=== PATIENT | female | born 1990 | race African-American/Black ===

== ENCOUNTER → 2018-03-20 | Outpatient (CLI) | payer MEDICAID ==
[~2018-03-20] MED LIST: IBUP800 PO; PREN0.01 PO; SENN1TAB11 PO
== END ==
LOC: HPND 10:35
PROVIDERS: ATTEND Obstetrics & Gynecology
DX: O35.1XX0 Maternal care for (suspected) chromosomal abnormality in fetus, not applicable or unspecified (principal)
CPT/HCPCS: 76816; 76817

== ENCOUNTER 2018-04-25 12:10 | Inpatient (IN) ==
[2018-04-25] MEDS ORDERED: Mag Sulf/Water 4 gm/100 ml 100 ML IV.SIG ONE ×2 (12:37→13:01)
[2018-04-25] MEDS ORDERED: Azithromycin 250 MG Tablet PO ONE (12:37)
[2018-04-25] MEDS ORDERED: Mag Sulf/Water 40 gm/1000 ml 40 GM/1,000 ML BAG IV.CONT SCH (13:00)
[2018-04-25] MEDS ORDERED: ENTER PATIENT'S HEIGHT AND WEIGHT INTO MEDITECH OTHER SCH (13:00)
[2018-04-25] MEDS ORDERED: Mag Sulf/Water 40 gm/1000 ml 40 GM/1,000 ML BAG IV.CONT ONE (13:01)
--- NOTE | 2018-04-25 13:11 | ED ---
History of Present Illness Primary Care Physician: UNKNOWN Chief Complaint: SROM History of Present Illness: Ms Sahu is a 27 YO at 29/6 weeks with late PNC started at 15 weeks gestation who presents after SROM at approximately 11 AM this morning. Pt has no VB or ctx but does have good movement. Pt also known to have short cervix at last OB US with cervix at 26-30mm in length. Pt reported to have recent colpo in December of this year. Pt taking PNV and Iron sulfate 325mg daily and NKA. Denies elevated BP or abnormal blood glucose. Previous delivered at term via . Denies CP, SOB, N/V/D, dysuria, leg pain. - Inpatient Certification I certify that the inpatient services were ordered in accordance with Medicare regulations governing the order. This includes certification that hospital inpatient services are reasonable and necessary and in the case of services not specified as inpatient-only under 42 CFR 419.22(n), that they are appropriately provided as inpatient services in accordance to with the 2-midnight benchmark under 43 CFR 412.3(e) Estimated Total Length of Stay (Days): 2 Plans for Post Hospital Care: Home Review of Systems Constitutional: Denies chills, Denies fever(s) Eyes: Denies change in vision Cardiovascular: Denies chest pain, Denies shortness of breath with activity Respiratory: Denies cough, Denies shortness of breath Gastrointestinal: Denies abdominal pain, Denies nausea, Denies vomiting Genitourinary: Denies abnormal vaginal bleeding, Denies vaginal discharge Musculoskeletal: Denies back pain Skin/Breast: Denies lesions, Denies rash Neurologic: Denies headache(s) PMFSH - Medical / Surgical Hx Neg / Unobtainable Surgical History: No Previous Surgery - Family History Family History: Family History (Last Updated 04/25/18 @ 13:00 by J Luis Askew III, MD, R2) Father Hypertension - Tobacco History Second Hand Smoke Exposure: Yes Tobacco Use In Past 30 Days: Yes Smoking Status: Current every day smoker (1 cigarette per day) Tobacco Type: Cigarettes Cigarettes Per Day: 1 - Alcohol History How Often Do You Have a Drink Containing Alcohol: Never - Substance Use History Substance History: No History of Abuse - Travel History History of Recent Travel: No Recent Travel in the [place] Within the Last 8 Weeks: No Recent Travel Out of the Country Within the Last 8 Weeks: No Medications and Allergies Allergies Allergy/AdvReac Type Severity Reaction Status Date / Time No Known Drug Allergies Allergy None Verified 04/25/18 20:24 Home Medications Medication Instructions Recorded Confirmed Type prenat.vits,sandy,[id number] 1 tab PO DAILY 04/25/18 04/25/18 History [ Vitamin] Active Medications: Active Medications Acetaminophen (Tylenol) 650 mg PO Q4H PRN PRN Reason: PAIN SCALE 1 TO 10 Azithromycin (Zithromax) 1,000 mg PO ONCE ONE Stop: 04/25/18 12:38 Betamethasone Acet/Betameth SodPhos (Celestone Soluspan Inj) 12 mg IM Q24H [facility] Stop: 04/26/18 13:00 Calcium Gluconate (Calcium Gluconate Inj) 1 gm IV.PUSH ONCE PRN PRN Reason: Magnesium toxicity Ampicillin Sodium 2,000 mg/ (Sodium Chloride) 100 mls @ 400 mls/hr IV.SIG Q6H [facility] Stop: 04/27/18 12:59 Lactated Ringer's (Lr 1000 Ml Inj) 1,000 mls @ 75 mls/hr IV.CONT .[id number] [facility] Lactated Ringer's (Lr 1000 Ml Inj) 500 mls @ 1,500 mls/hr IV.SIG .Q20M ONE Stop: 04/25/18 12:56 Magnesium Sulfate (Magnesium Sulfate/Water 4 Gm/100 Ml Premix) 100 mls @ 300 mls/hr IV.SIG ONCE ONE Stop: 04/25/18 12:56 Magnesium Sulfate (Magnesium Sulfate/Water 40 Gm/1000 Ml Premix) 40 gm in 1, 000 mls @ 25 mls/hr IV.CONT Q24H [facility] Ondansetron HCl (Zofran Inj) 4 mg IV.PUSH Q6H PRN PRN Reason: NAUSEA OR VOMITING Sodium Chloride (Ns Flush) 2 ml IV.FLUSH BID [facility] Sodium Chloride (Ns Flush) 2 ml IV.FLUSH Q24H [facility] Stop: 04/26/18 12:46 Exam Vital signs: Vital Signs 04/25/18 12:32 04/25/18 12:33 Temperature 98.5 F Respiratory Rate 18 Narrative: GENERAL: Well-nourished, well-developed patient. SKIN: Warm and dry. HEAD: Normocephalic and atraumatic. EYES: No scleral icterus. No injection or drainage. ENT: No nasal drainage noted. Mucous membranes pink. Airway patent. NECK: Supple, trachea midline. No JVD. CARDIOVASCULAR: Regular rate and rhythm without murmurs, gallops, or rubs. RESPIRATORY: Breath sounds equal bilaterally. No accessory muscle use. ABDOMEN/GI: Abdomen soft, non-tender, bowel sounds present, no rebound, no guarding Gravid to 29 weeks size GENITOURINARY: External Genitalia: intact and normal in appearance Internal genitalia: normal appearing cervix is closed. There is copious milky white discharge. Cervix: closed Dilatation: - Effacement: - Station: - Presentation: - Membranes: SROM reported at 11AM Uterine Contractions: absent FHT's: Category: 1 Baseline: 135 Reactive: yes Variability: moderate Decels: absent EXTREMITIES: No cyanosis or edema. BACK: Nontender without obvious deformity. No CVA tenderness. NEUROLOGICAL: Awake and alert. Motor and sensory grossly within normal limits. Five out of 5 muscle strength in all muscle groups. Normal speech. Results - Labs CBC & Chem 7: 05/20/18 07:00 Assessment and Plan - Diagnosis (1) premature rupture of membranes (PPROM) with unknown onset of labor Code(s): O42.919 - premature rupture of membranes, unspecified as to length of time between rupture and onset of labor, unspecified trimester Status: Deleted Plan: 27 YO at 29/6 weeks gestation with late PNC started at 15 weeks at [facility] who presents after SROM at approximately 11 AM this morning concerning for PPROM. There are no ctx or VB. Cervix is closed on speculum exam. Reassuring FHT with Cat 1 tracing, BL 135, reactive, moderate, absent decels. Admitting to antepartum. 1. PPROM at 29/6 weeks -[place] and monitor -Mag sulfate IV per protocol -Ampicillin 2g IV q6h -Azithromycin 1g once -LR IVF 1L bolus, then @ 75mls/hr -Betamethasone 12mg IM q24h x2 doses -PRN tylenol and zofran -Amnisure positive -OB diagnostic US w/cervical length - labs pending Pt SDW Dr Cee - Attending Attestation I personally saw and examined patient. Will admit for PPROM, administer magnesium sulfate for neuroprotection, betamethasone for lung maturity, and intravenous antibiotics to prolong latency. FHR reassuring, continue monitoring. Discussed with patient goal of at least 48 hours to improved outcome, but ideally would prolong until 34 weeks. Discussed risks of PPROM, infection, delivery if indicated. Discharge Plan - Discharge Order Discharge Orders: Discharge Order (Routine); Ordered 05/23/18 Ordered By: Anika Haney - Physicians Team Primary Care Provider: UNKNOWN, Attending Provider: Anastasia Cee Other Providers: Renae Mckeon MD
[2018-04-25] MEDS: Betamethasone Sod Phos/Acetate Inj 30 MG/5 ML Vial IM SCH (13:43)
[2018-04-25 14:27] LABS: Baso # (Auto) 0.1 th/mm3 (0.0-0.2); Baso % (Auto) 0.7 % (0.0-2.0); Eos # (Auto) 0.3 th/mm3 (0.0-0.4); Eos % (Auto) 3.7 % (0.0-4.0); Hematocrit 31.3 % (35.0-46.0); Hemoglobin 10.4 gm/dL (11.6-15.3); Lymph # (Auto) 2.5 th/mm3 (1.0-4.8); Lymph % (Auto) 27.3 % (9.0-44.0); Mean Corpuscular HGB Conc 33.2 % (32.0-36.0); Mean Corpuscular Hemoglobin 29.5 pg (27.0-34.0); Mean Corpuscular Volume 88.8 fL (80.0-100.0); Mean Platelet Volume 9.9 fL (7.0-11.0); Mono # (Auto) 0.9 th/mm3 (0.0-0.9); Mono % (Auto) 9.5 % (0.0-8.0); Neut # (Auto) 5.4 th/mm3 (1.8-7.7); Neut % (Auto) 58.8 % (16.0-70.0); Platelet Count 243 th/mm3 (150-450); Red Blood Count 3.52 mil/mm3 (4.00-5.30); Red Cell Distribution Width 13.1 % (11.6-17.2); White Blood Count 9.2 th/mm3 (4.0-11.0)
[2018-04-25 14:37] LABS: Amphetamine Screen,Urine Neg (Neg); Barbiturate Screen,Urine Neg (Neg); Cannabinoid Screen,Urine Neg (Neg); Cocaine Screen,Urine Neg (Neg)
[2018-04-25 14:38] LABS: Bilirubin,Urine Negative (Negative); Clarity,Urine Clear (Clear); Color,Urine Colorless (Yellw/Straw); Glucose,Urine (UA) Negative (Negative); Hyaline Casts,Urine 1 /lpf (0-3); Leukocyte Esterase,Urine Negative (Negative); Mucus,Urine Few /lpf (Occasional); Nitrite,Urine Negative (Negative); Specific Gravity,Urine 1.002 (1.002-1.035); Squamous Epithelial Cell,Urine 1 /hpf (0-5)
[2018-04-25 14:39] LABS: Opiate Screen,Urine Neg (Neg)
--- NOTE | 2018-04-25 18:29 | P.HPOB ---
Chief Complaint: SROM History of Present Illness: Ms Sahu is a 27 YO at 29/6 weeks with late PNC started at 15 weeks gestation who presents after SROM at approximately 11 AM this morning. Pt has no VB or ctx but does have good movement. Pt also known to have short cervix at last OB US with cervix at 26-30mm in length. Pt reported to have recent colpo in December of this year. Pt taking PNV and Iron sulfate 325mg daily and NKA. Denies elevated BP or abnormal blood glucose. Previous delivered at term via . Denies CP, SOB, N/V/D, dysuria, leg pain. - Inpatient Certification If this patient has been admitted as an Inpatient: I certify that the inpatient services were ordered in accordance with Medicare regulations governing the order. This includes certification that hospital inpatient services are reasonable and necessary and in the case of services not specified as inpatient-only under 42 CFR 419.22(n), that they are appropriately provided as inpatient services in accordance to with the 2-midnight benchmark under 43 CFR 412.3(e) Estimated Total Length of Stay (Days): 2 Plans for Post Hospital Care: Home Review of Systems Constitutional: Denies chills, Denies fever(s) Eyes: Denies change in vision Cardiovascular: Denies chest pain, Denies shortness of breath with activity Respiratory: Denies cough, Denies shortness of breath Gastrointestinal: Denies abdominal pain, Denies nausea, Denies vomiting Genitourinary: Denies abnormal vaginal bleeding, Denies vaginal discharge Musculoskeletal: Denies back pain Skin/Breast: Denies lesions, Denies rash Neurologic: Denies headache(s) PMFSH - Medical / Surgical Hx Neg / Unobtainable Surgical History: No Previous Surgery - Family History Family History: Family History (Last Updated 04/25/18 @ 13:00 by J Luis Askew III, MD, R1) Father Hypertension - Tobacco History Second Hand Smoke Exposure: Yes Tobacco Use In Past 30 Days: Yes Smoking Status: Current every day smoker (1 cigarette per day) Tobacco Type: Cigarettes Cigarettes Per Day: 1 - Alcohol History How Often Do You Have a Drink Containing Alcohol: Never - Substance Use History Substance History: No History of Abuse - Travel History History of Recent Travel: No Recent Travel in the [place] Within the Last 8 Weeks: No Recent Travel Out of the Country Within the Last 8 Weeks: No Medications and Allergies Active Medications: Active Medications Acetaminophen (Tylenol) 650 mg PO Q4H PRN PRN Reason: PAIN SCALE 1 TO 10 Azithromycin (Zithromax) 1,000 mg PO ONCE ONE Stop: 04/25/18 12:38 Betamethasone Acet/Betameth SodPhos (Celestone Soluspan Inj) 12 mg IM Q24H [facility] Stop: 04/26/18 13:00 Calcium Gluconate (Calcium Gluconate Inj) 1 gm IV.PUSH ONCE PRN PRN Reason: Magnesium toxicity Ampicillin Sodium 2,000 mg/ (Sodium Chloride) 100 mls @ 400 mls/hr IV.SIG Q6H [facility] Stop: 04/27/18 12:59 Lactated Ringer's (Lr 1000 Ml Inj) 1,000 mls @ 75 mls/hr IV.CONT .[id number] [facility] Lactated Ringer's (Lr 1000 Ml Inj) 500 mls @ 1,500 mls/hr IV.SIG .Q20M ONE Stop: 04/25/18 12:56 Magnesium Sulfate (Magnesium Sulfate/Water 4 Gm/100 Ml Premix) 100 mls @ 300 mls/hr IV.SIG ONCE ONE Stop: 04/25/18 12:56 Magnesium Sulfate (Magnesium Sulfate/Water 40 Gm/1000 Ml Premix) 40 gm in 1, 000 mls @ 25 mls/hr IV.CONT Q24H [facility] Ondansetron HCl (Zofran Inj) 4 mg IV.PUSH Q6H PRN PRN Reason: NAUSEA OR VOMITING Sodium Chloride (Ns Flush) 2 ml IV.FLUSH BID [facility] Sodium Chloride (Ns Flush) 2 ml IV.FLUSH Q24H [facility] Stop: 04/26/18 12:46 Allergies Allergy/AdvReac Type Severity Reaction Status Date / Time No Known Allergies Allergy Uncoded 07/03/13 17:06 Home Medications Medication Instructions Recorded Confirmed Type ferrous sulfate 325 mg PO DAILY 04/25/18 04/25/18 History prenat.vits,sandy,slc-[id number] 1 tab PO DAILY 04/25/18 04/25/18 History [ Vitamin] Exam Vital signs: Vital Signs 04/25/18 12:32 04/25/18 12:33 Temperature 98.5 F Respiratory Rate 18 Narrative: GENERAL: Well-nourished, well-developed patient. SKIN: Warm and dry. HEAD: Normocephalic and atraumatic. EYES: No scleral icterus. No injection or drainage. ENT: No nasal drainage noted. Mucous membranes pink. Airway patent. NECK: Supple, trachea midline. No JVD. CARDIOVASCULAR: Regular rate and rhythm without murmurs, gallops, or rubs. RESPIRATORY: Breath sounds equal bilaterally. No accessory muscle use. ABDOMEN/GI: Abdomen soft, non-tender, bowel sounds present, no rebound, no guarding Gravid to 29 weeks size GENITOURINARY: External Genitalia: intact and normal in appearance Internal genitalia: normal appearing cervix is closed. There is copious milky white discharge. Cervix: closed Dilatation: - Effacement: - Station: - Presentation: - Membranes: SROM reported at 11AM Uterine Contractions: absent FHT's: Category: 1 Baseline: 135 Reactive: yes Variability: moderate Decels: absent EXTREMITIES: No cyanosis or edema. BACK: Nontender without obvious deformity. No CVA tenderness. NEUROLOGICAL: Awake and alert. Motor and sensory grossly within normal limits. Five out of 5 muscle strength in all muscle groups. Normal speech. Assessment and Plan - Diagnosis (1) premature rupture of membranes (PPROM) with unknown onset of labor Code(s): O42.919 - premature rupture of membranes, unspecified as to length of time between rupture and onset of labor, unspecified trimester Status: Acute Plan: 27 YO at 29/6 weeks gestation with late PNC started at 15 weeks at [facility] who presents after SROM at approximately 11 AM this morning concerning for PPROM. There are no ctx or VB. Cervix is closed on speculum exam. Reassuring FHT with Cat 1 tracing, BL 135, reactive, moderate, absent decels. Admitting to antepartum. 1. PPROM at 29/6 weeks -[place] and monitor -Mag sulfate IV per protocol -Ampicillin 2g IV q6h -Azithromycin 1g once -LR IVF 1L bolus, then @ 75mls/hr -Betamethasone 12mg IM q24h x2 doses -PRN tylenol and zofran -Amnisure positive -OB diagnostic US w/cervical length - labs pending Pt SDW Dr Cee The patient was seen and examined by me and I participated in all toro decision making. Admit for PPROM and routine PPROM management. SMS
[2018-04-25] MEDS ORDERED: Azithromycin 250 MG Tablet PO SCH (22:15)
[2018-04-25] MEDS: Mag Sulf/Water 40 gm/1000 ml 40 GM/1,000 ML BAG IV.CONT SCH (22:24)
[2018-04-26] MEDS: Mag Sulf/Water 40 gm/1000 ml 40 GM/1,000 ML BAG IV.CONT SCH (07:00)
--- NOTE | 2018-04-26 09:50 | P.OBANTE ---
Subjective - Diagnosis (1) premature rupture of membranes (PPROM) with unknown onset of labor Diagnosis: Principal Interval History: Ms Sahu had no acute events overnight. She is on bedrest for PPROM, mag sulfate IV, betamethasone and IVF. [place] is indwelling. Ancef IV antibiotics q6h. She is not having increased LOF, VB, ctx but is having good movement. Pt is not in pain. She is taking PO. No BM. She has been hypotensive overnight likely due to the mag treatment and feels a little "woozy". Denies CP , SOB, N/V/D and DVT pain. Objective Vital Signs and I&O: Vital Signs 04/25/18 12:32 04/25/18 12:33 04/25/18 12:40 Temperature 98.5 F Pulse Rate 204 H Respiratory Rate 18 Blood Pressure 104/58 L 04/25/18 13:55 04/25/18 14:00 04/25/18 15:00 Temperature Pulse Rate 86 136 H Respiratory Rate 18 16 Blood Pressure 108/57 L 04/25/18 16:55 04/25/18 17:00 04/25/18 17:08 Temperature 98.0 F Pulse Rate 79 77 Respiratory Rate 18 Blood Pressure 106/47 L 111/71 04/25/18 17:45 04/25/18 17:55 04/25/18 18:45 Temperature Pulse Rate 78 77 89 Respiratory Rate 18 16 Blood Pressure 103/52 L 04/25/18 19:45 04/25/18 19:50 04/25/18 19:55 Temperature 98.1 F Pulse Rate 85 85 83 Respiratory Rate 16 Blood Pressure 112/78 04/25/18 20:00 04/25/18 20:30 04/25/18 20:50 Temperature Pulse Rate 92 H 84 91 H Respiratory Rate Blood Pressure 102/60 04/25/18 21:00 04/25/18 21:05 04/25/18 21:10 Temperature Pulse Rate 86 84 83 Respiratory Rate Blood Pressure 04/25/18 21:15 04/25/18 21:20 04/25/18 21:25 Temperature Pulse Rate 83 86 87 Respiratory Rate Blood Pressure 04/25/18 21:45 04/25/18 21:55 04/25/18 22:00 Temperature Pulse Rate 83 82 81 Respiratory Rate Blood Pressure 04/25/18 22:10 04/25/18 22:15 04/25/18 22:20 Temperature Pulse Rate 85 84 82 Respiratory Rate Blood Pressure 04/25/18 22:22 04/25/18 22:25 04/25/18 22:30 Temperature 97.7 F Pulse Rate 79 75 Respiratory Rate 16 Blood Pressure 104/57 L 04/25/18 22:35 04/25/18 22:40 04/25/18 22:50 Temperature Pulse Rate 86 83 81 Respiratory Rate Blood Pressure 04/25/18 22:55 04/25/18 23:15 04/25/18 23:20 Temperature Pulse Rate 79 78 79 Respiratory Rate Blood Pressure 97/49 L 04/25/18 23:30 04/25/18 23:35 04/25/18 23:45 Temperature Pulse Rate 80 78 74 Respiratory Rate Blood Pressure 04/25/18 23:50 04/26/18 00:00 04/26/18 00:10 Temperature 97.6 F Pulse Rate 80 70 72 Respiratory Rate Blood Pressure 105/57 L 04/26/18 00:15 04/26/18 00:20 04/26/18 00:25 Temperature Pulse Rate 81 81 73 Respiratory Rate Blood Pressure 04/26/18 00:30 04/26/18 00:40 04/26/18 00:50 Temperature Pulse Rate 75 73 79 Respiratory Rate Blood Pressure 04/26/18 01:05 04/26/18 01:15 04/26/18 01:40 Temperature 97.7 F Pulse Rate 99 H 160 H 74 Respiratory Rate 17 Blood Pressure 86/60 L 04/26/18 01:55 04/26/18 02:05 04/26/18 02:15 Temperature Pulse Rate 180 H 79 83 Respiratory Rate Blood Pressure 100/58 L 04/26/18 02:20 04/26/18 03:00 04/26/18 03:55 Temperature Pulse Rate 80 72 69 Respiratory Rate Blood Pressure 94/49 L 04/26/18 04:00 04/26/18 04:04 04/26/18 04:10 Temperature 97.9 F Pulse Rate 82 75 Respiratory Rate Blood Pressure 04/26/18 04:15 04/26/18 04:20 04/26/18 04:25 Temperature Pulse Rate 74 74 70 Respiratory Rate Blood Pressure 04/26/18 04:30 04/26/18 04:55 04/26/18 05:00 Temperature Pulse Rate 68 71 77 Respiratory Rate Blood Pressure 88/44 L 04/26/18 05:30 04/26/18 05:45 04/26/18 05:55 Temperature Pulse Rate 73 82 74 Respiratory Rate Blood Pressure 04/26/18 06:00 04/26/18 06:05 04/26/18 06:30 Temperature 98.0 F Pulse Rate 84 83 75 Respiratory Rate 16 Blood Pressure 92/48 L 04/26/18 06:35 04/26/18 06:50 04/26/18 06:55 Temperature Pulse Rate 77 78 73 Respiratory Rate Blood Pressure 04/26/18 07:10 04/26/18 07:15 04/26/18 07:35 Temperature Pulse Rate 75 80 81 Respiratory Rate Blood Pressure 101/51 L 04/26/18 07:40 04/26/18 07:50 04/26/18 07:55 Temperature Pulse Rate 76 81 95 H Respiratory Rate Blood Pressure 04/26/18 08:00 04/26/18 08:05 04/26/18 08:20 Temperature Pulse Rate 88 87 Respiratory Rate 17 Blood Pressure 101/51 L 04/26/18 08:25 04/26/18 08:50 04/26/18 09:15 Temperature Pulse Rate 84 87 79 Respiratory Rate Blood Pressure 100/54 L Intake & Output 04/25/18 04/26/18 04/26/18 18:59 06:59 18:59 Intake Total 200 / 200 1200 / 1200 1000 / 1000 Balance 200 / 200 1200 / 1200 1000 / 1000 Weight 53.977 kg Intake: IV 200 / 200 1200 / 1200 1000 / 1000 LR 1000 mL Inj 1,000 ML @ 75 1000 / 1000 mls/hr IV.CONT .[id number] [facility] Rx# :[id number] Magnesium Sulfate/Water 40 gm/ 1000 / 1000 1000 ml Premix 40 gm In 1,000 ml @ 2 GM/HR 50 mls/hr IV.CONT Q24H [facility] Rx#:[id number] Ampicillin Inj 2,000 MG In NS 100 / 100 200 / 200 Inj 100 ML @ 400 mls/hr IV.SIG Q6HR [facility] Rx#:[id number] Magnesium Sulfate/Water 4 gm/ 100 / 100 100 ml Premix 100 ML @ 300 mls/ hr IV.SIG ONCE ONE Rx#:[id number] Lab and Micro Results: Laboratory Results - last 24 hr 04/25/18 04/25/18 04/25/18 13:00 13:00 13:00 WBC 9.2 RBC 3.52 L Hgb 10.4 L Hct 31.3 L MCV 88.8 MCH 29.5 MCHC 33.2 RDW 13.1 Plt Count 243 MPV 9.9 Neut % (Auto) 58.8 Lymph % (Auto) 27.3 [place] % (Auto) 9.5 H Eos % (Auto) 3.7 Baso % (Auto) 0.7 Neut # (Auto) 5.4 Lymph # (Auto) 2.5 [place] # (Auto) 0.9 Eos # (Auto) 0.3 Baso # (Auto) 0.1 WBC Differential . Differential Comment Auto diff final Urine Color Colorless Urine Clarity Clear Urine pH 8.0 Ur Specific [place] 1.002 Urine Protein Negative Urine Glucose (UA) Negative Urine Ketones Negative Urine Occult Blood Negative Urine Nitrate Negative Urine Bilirubin Negative Urine Urobilinogen Less than 2 Ur Leukocyte Esterase Negative Urine RBC Less than 1 Urine WBC 1 Ur Squamous Epith Cells 1 Hyaline Casts 1 Urine Mucus Few H Micro UA Comment Culture not ind Urine Culture Comments Culture not ind Urine Opiates Screen Neg Ur Barbiturates Screen Neg Ur Amphetamines Screen Neg U Benzodiazepines Scrn Neg Urine Cocaine Screen Neg U Cannabinoids Screen Neg Chlam trachomat DNA PCR N.gonorrhoeae DNA (PCR) Group B Strep (PCR) 04/25/18 04/25/18 13:21 16:15 WBC RBC Hgb Hct MCV MCH MCHC RDW Plt Count MPV Neut % (Auto) Lymph % (Auto) [place] % (Auto) Eos % (Auto) Baso % (Auto) Neut # (Auto) Lymph # (Auto) [place] # (Auto) Eos # (Auto) Baso # (Auto) WBC Differential Differential Comment Urine Color Urine Clarity Urine pH Ur Specific [place] Urine Protein Urine Glucose (UA) Urine Ketones Urine Occult Blood Urine Nitrate Urine Bilirubin Urine Urobilinogen Ur Leukocyte Esterase Urine RBC Urine WBC Ur Squamous Epith Cells Hyaline Casts Urine Mucus Micro UA Comment Urine Culture Comments Urine Opiates Screen Ur Barbiturates Screen Ur Amphetamines Screen U Benzodiazepines Scrn Urine Cocaine Screen U Cannabinoids Screen Chlam trachomat DNA PCR Not detected N.gonorrhoeae DNA (PCR) Not detected Group B Strep (PCR) Negative Physical Exam: GENERAL: Well-nourished, well-developed patient. CARDIOVASCULAR: Regular rate and rhythm without murmurs, gallops, or rubs. RESPIRATORY: Breath sounds equal bilaterally. No accessory muscle use. ABDOMEN/GI: Abdomen soft, non-tender, gravid. GENITOURINARY: External Genitalia: deferred due to PPROM Cervix: - Dilatation: - Effacement: - Station: - Presentation: - Membranes: SROM yesterday Uterine Contractions: absent FHT's: Category: 1 Baseline: 120 Reactive: yes Variability: mild-moderate Decels: absent EXTREMITIES: No cyanosis or edema, non-tender, without signs of DVT. Assessment and Plan - Diagnosis (1) premature rupture of membranes (PPROM) with unknown onset of labor Code(s): O42.919 - premature rupture of membranes, unspecified as to length of time between rupture and onset of labor, unspecified trimester Status: Acute Plan: 27 YO at 30/0 weeks gestation with late PNC started at 15 weeks and short cervix followed by [facility] who presents after SROM at approximately 11 AM on with PPROM. There are no ctx or VB. Cervix closed on speculum exam 04/25. Reassuring FHT with Cat 1 tracing, BL 120, reactive, mild-moderate, absent decels. Bedrest on antepartum. Hypotensive to 92/48 likely due to mag, but hemodynamically stable. Afebrile. 1. PPROM at 30/0 weeks -[place] and monitor -Mag sulfate IV per protocol -Ampicillin 2g IV q6h -Azithromycin 1g once (04/25) -LR IVF @ 75mls/hr -Betamethasone 12mg IM q24h x2 doses (first dose administered 04/25, second dose due at noon today) -PRN tylenol and zofran -Amnisure positive -OB diagnostic US w/cervical length - labs showing GC/chlamydia and GBS negative; GBS swab cx pending -UDS negative -H/H pending this morning Pt SDW Steve Cee and Karley
[2018-04-26 11:54] LABS: Hemoglobin 6.9 gm/dL (11.6-15.3)
[2018-04-26] MEDS: Betamethasone Sod Phos/Acetate Inj 30 MG/5 ML Vial IM SCH (12:28)
[2018-04-26 13:07] LABS: Hematocrit 27.3 % (35.0-46.0); Hemoglobin 9.1 gm/dL (11.6-15.3)
--- NOTE | 2018-04-27 08:53 | P.OBANTE ---
Subjective Interval History: Ms. Sahu is a 27yo at 30/0 here for PPROM. She reports that she feels much better today after d/c the Mg. She reports good movement. Denies any pain, vaginal bleeding or further loss of fluid. She is eating well, urinating without difficulties, has had a bowel movement. She has been OOB without dizziness. Objective Vital Signs and I&O: Vital Signs 04/26/18 08:50 04/26/18 09:15 04/26/18 09:58 Temperature Pulse Rate 87 79 Respiratory Rate 18 Blood Pressure 100/54 L 04/26/18 09:59 04/26/18 10:00 04/26/18 10:05 Temperature 98.0 F Pulse Rate 95 H 80 74 Respiratory Rate Blood Pressure 04/26/18 10:15 04/26/18 10:25 04/26/18 10:30 Temperature Pulse Rate 48 L 83 74 Respiratory Rate Blood Pressure 04/26/18 10:35 04/26/18 10:51 04/26/18 12:10 Temperature Pulse Rate 72 75 80 Respiratory Rate Blood Pressure 87/35 L 92/60 L 04/26/18 12:15 04/26/18 12:19 04/26/18 12:25 Temperature 98.3 F Pulse Rate 76 79 Respiratory Rate 18 Blood Pressure 04/26/18 12:30 04/26/18 12:31 04/26/18 12:35 Temperature Pulse Rate 81 95 H Respiratory Rate 16 Blood Pressure 04/26/18 12:55 04/26/18 13:25 04/26/18 13:35 Temperature Pulse Rate 79 77 83 Respiratory Rate Blood Pressure 04/26/18 13:55 04/26/18 14:55 04/26/18 15:00 Temperature Pulse Rate 77 78 82 Respiratory Rate Blood Pressure 04/26/18 15:10 04/26/18 15:44 04/26/18 15:45 Temperature Pulse Rate 83 82 Respiratory Rate 17 Blood Pressure 04/26/18 15:55 04/26/18 16:00 04/26/18 16:47 Temperature 99.2 F 99.0 F Pulse Rate 83 88 Respiratory Rate 18 17 Blood Pressure 04/26/18 16:48 04/26/18 16:55 04/26/18 17:00 Temperature Pulse Rate 74 82 82 Respiratory Rate Blood Pressure 102/51 L 04/26/18 17:10 04/26/18 17:15 04/26/18 17:50 Temperature Pulse Rate 88 82 76 Respiratory Rate Blood Pressure 04/26/18 18:15 04/26/18 19:15 04/26/18 19:20 Temperature 97.6 F Pulse Rate 86 81 76 Respiratory Rate 18 Blood Pressure 98/55 L 04/26/18 19:40 04/26/18 22:00 04/27/18 00:16 Temperature 98.2 F 98.3 F Pulse Rate 78 Respiratory Rate 18 Blood Pressure 04/27/18 00:17 04/27/18 01:41 04/27/18 04:23 Temperature 98.2 F 98.5 F Pulse Rate 78 Respiratory Rate 18 Blood Pressure 97/48 L 04/27/18 04:25 04/27/18 06:14 04/27/18 07:46 Temperature 98.4 F 98.4 F Pulse Rate 75 Respiratory Rate 18 Blood Pressure 90/46 L 04/27/18 07:50 Temperature Pulse Rate 68 Respiratory Rate Blood Pressure 104/53 L Intake & Output 04/26/18 04/27/18 04/27/18 18:59 06:59 18:59 Intake Total 1200 / 1200 100 / 100 Balance 1200 / 1200 100 / 100 Intake: IV 1200 / 1200 100 / 100 Magnesium Sulfate/Water 40 gm/ 1000 / 1000 1000 ml Premix 40 gm In 1,000 ml @ 2 GM/HR 50 mls/hr IV.CONT Q24H [facility] Rx#:[id number] Ampicillin Inj 2,000 MG In NS 200 / 200 100 / 100 Inj 100 ML @ 400 mls/hr IV.SIG Q6HR [facility] Rx#:[id number] Lab and Micro Results: Laboratory Results - last 24 hr 04/26/18 04/26/18 04/26/18 09:15 12:15 13:58 Hgb 6.9 L* D 9.1 L D Hct 21.0 L 27.3 L Blood Type O Positive Antibody Screen Negative Microbiology 04/25/18 16:15 Group B Streptococcus Screen ([facility]) - Preliminary Genital - Genital Region Results Pending Physical Exam: GENERAL: Well-nourished, well-developed patient. CARDIOVASCULAR: Regular rate and rhythm without murmurs, gallops, or rubs. RESPIRATORY: Breath sounds equal bilaterally. No accessory muscle use. ABDOMEN/GI: Abdomen gravid, non-tender. GENITOURINARY: External Genitalia: Deferred FHT's: Category: 1 Baseline: 150 Reactive: yes Variability: moderate Decels: none EXTREMITIES: No cyanosis or edema, non-tender, without signs of DVT. Assessment and Plan - Diagnosis (1) premature rupture of membranes (PPROM) with unknown onset of labor Code(s): O42.919 - premature rupture of membranes, unspecified as to length of time between rupture and onset of labor, unspecified trimester Status: Acute - Plan 27 YO at 30/0 weeks gestation with late PNC started at 15 weeks and short cervix followed by CFW who presents after SROM at approximately 11 AM on with PPROM. There are no ctx or VB. Cervix was closed on speculum exam 04/25. Reassuring FHT with Cat 1 tracing. Bedrest on antepartum. Afebrile. 1. PPROM at 30/0 weeks -[place] and monitor 20 minutes q4hr -Transition to amoxicillin 875mg BID for 5 days with first dose this am. -PRN tylenol and zofran -OOB with assistance today, ambulating as tolerated -Hypotension- BP has been relatively stable since admission. Clinically stable. Check CBC this am, continue to monitor. -Pt received 24hours Mg -Ampicillin 2g IV q6h, complete. Transition to Po a/b today. -Azithromycin 1g once (04/25), given -Betamethasone 12mg IM q24h x2 doses, given -Amnisure positive -OB diagnostic US w/cervical length - labs showing GC/chlamydia and GBS negative; GBS negative -UDS negative Pt DW Dr Wahl and SDW Dr Askew
[2018-04-27] MEDS ORDERED: Ferrous Sulfate 325 MG Tablet PO SCH (09:00)
[2018-04-27] MEDS ORDERED: Prenatal Vit/Ca/Iron/Folic Acid Tablet PO SCH (09:00)
[2018-04-27] MEDS ORDERED: Non-Formulary Drug (Prenat.Vits,Cal,Min-Iron-Folic [Prenatal Vitamin] 1 TAB) PO SCH (09:00)
[2018-04-27 09:03] LABS: Hematocrit 27.4 % (35.0-46.0); Mean Corpuscular HGB Conc 32.9 % (32.0-36.0); Mean Corpuscular Hemoglobin 28.9 pg (27.0-34.0); Mean Corpuscular Volume 87.9 fL (80.0-100.0); Mean Platelet Volume 10.1 fL (7.0-11.0); Platelet Count 232 th/mm3 (150-450); Red Blood Count 3.12 mil/mm3 (4.00-5.30); Red Cell Distribution Width 13.5 % (11.6-17.2); White Blood Count 20.5 th/mm3 (4.0-11.0)
[2018-04-27] MEDS: Ferrous Sulfate 325 MG Tablet PO SCH ×2 (09:14→21:22)
[2018-04-27] MEDS: Prenatal Vit/Ca/Iron/Folic Acid Tablet PO SCH (09:14)
--- NOTE | 2018-04-28 09:12 | P.OBANTE ---
Subjective Interval History: Ms Sahu had no acute events overnight. Pt is in no pain, no VB, no CTX, some continued mild fluid leakage, good FM. Pt continues to be chronically hypotensive but is asymptomatic. Pt has been ambulating, taking PO. Denies CP, SOB, N/V/D, fever, chills, DVT pain. Pt was transitioned from IV Ampicillin to a 5 day course of PO Amoxicillin yesterday for prophylaxis. All questions answered. Antepartum ROS: Reports: Loss of fluid, movement normal Denies: New complaints, Vaginal bleeding, Contractions Objective Vital Signs and I&O: Vital Signs 04/27/18 10:53 04/27/18 11:23 04/27/18 12:04 Temperature 97.9 F 98.7 F 98.8 F Pulse Rate Respiratory Rate 16 Blood Pressure 04/27/18 12:05 04/27/18 15:06 04/27/18 16:33 Temperature 98.5 F 98.5 F Pulse Rate 70 Respiratory Rate 18 Blood Pressure 94/46 L 04/27/18 16:34 04/27/18 19:29 04/27/18 23:55 Temperature 98.3 F Pulse Rate 75 75 73 Respiratory Rate 18 Blood Pressure 105/51 L 101/56 L 98/66 L 04/28/18 00:00 04/28/18 05:31 04/28/18 07:00 Temperature 97.9 F 98.0 F 99.0 F Pulse Rate 72 Respiratory Rate 18 18 Blood Pressure 96/52 L Intake & Output 04/27/18 04/28/18 04/28/18 18:59 06:59 18:59 Weight 50.349 kg Lab and Micro Results: Laboratory Results - last 24 hr 04/27/18 07:54 WBC 20.5 H RBC 3.12 L Hgb 9.0 L Hct 27.4 L MCV 87.9 MCH 28.9 MCHC 32.9 RDW 13.5 Plt Count 232 MPV 10.1 Microbiology 04/25/18 16:15 Group B Streptococcus Screen ([facility]) - Preliminary Genital - Genital Region No Group B Strep isolated Physical Exam: GENERAL: Well-nourished, well-developed patient. CARDIOVASCULAR: Regular rate and rhythm without murmurs, gallops, or rubs. RESPIRATORY: Breath sounds equal bilaterally. No accessory muscle use. ABDOMEN/GI: Abdomen soft and gravid, non-tender, BS normal. Fundus: - GENITOURINARY: External Genitalia: deferred due to PPROM. Cervix: - Dilatation: - Effacement: - Station: - Presentation: - Membranes: SROM Uterine Contractions: absent FHT's: Category: 1 Baseline: 150 Reactive: yes Variability: mild overnight/moderate this morning Decels: absent EXTREMITIES: No cyanosis or edema, non-tender, without signs of DVT. Assessment and Plan - Diagnosis (1) premature rupture of membranes (PPROM) with unknown onset of labor Code(s): O42.919 - premature rupture of membranes, unspecified as to length of time between rupture and onset of labor, unspecified trimester Status: Acute Plan: 27 YO at 30/2 weeks gestation with late PNC started at 15 weeks and short cervix followed by CFW who presents after SROM at approximately 11 AM on with PPROM. There are no ctx, VB, or pelvic pain, but there is some mild fluid leakage. Cervix closed on speculum exam 04/25. Reassuring FHT with Cat 1 tracing, BL 150, reactive, mild-moderate, absent decels. Pt has been chronically hypotensive during this hospitalization but is asymptomatic, otherwise afebrile with other VS stable. 1. PPROM at 30/2 weeks -[place] and monitor q4h -Cat 1 tracing, BL 150, reactive, mild-moderate, no decels -PRN tylenol and zofran -OOB with ambulation; SCDs in bed Previous therapy/workup: -Discontinued Mag sulfate IV after 24 hours -Discontinued Ampicillin 2g IV q6h after 48 hours (04/25-04/27) -Discontinued Azithromycin 1g after 1 dose (04/25) -Discontinued Betamethasone 12mg IM after 2 doses (04/25-04/26) -Amnisure positive -GC/chlamydia, GBS and UDS negative Pt DW Dr Lomax and SW Dr Crandall
[2018-04-28] MEDS: Prenatal Vit/Ca/Iron/Folic Acid Tablet PO SCH (09:38)
[2018-04-28] MEDS: Ferrous Sulfate 325 MG Tablet PO SCH ×2 (09:38→21:21)
--- NOTE | 2018-04-29 08:17 | P.OBANTE ---
Subjective Interval History: Ms Sahu had no acute events overnight. Pt has no pain, no VB, no CTX, some continued mild fluid leakage, good FM. Pt is chronically hypotensive but is asymptomatic. Pt has been ambulating, taking PO. Denies CP, SOB, N/V/D, fever, chills, DVT pain. Pt transitioned from Azithromycin once and IV Ampicillin for 48 hours to a 5 day course of PO Amoxicillin on 04/27 for prophylaxis. All questions answered. Objective Vital Signs and I&O: Vital Signs 04/28/18 09:15 04/28/18 12:55 04/28/18 13:00 Temperature 98.4 F Pulse Rate 88 66 Respiratory Rate 18 Blood Pressure 105/64 103/53 L 04/28/18 13:10 04/28/18 17:26 04/28/18 17:30 Temperature 98.2 F Pulse Rate 78 72 Respiratory Rate 18 Blood Pressure 96/46 L 04/28/18 17:32 04/28/18 17:55 04/28/18 20:10 Temperature 99.0 F 98.5 F Pulse Rate 72 Respiratory Rate 18 18 Blood Pressure 04/28/18 20:35 04/29/18 00:00 04/29/18 05:26 Temperature 98.0 F 98.9 F Pulse Rate 149 H 63 72 Respiratory Rate 18 18 Blood Pressure 83/55 L 88/47 L 84/52 L 04/29/18 05:40 Temperature Pulse Rate 70 Respiratory Rate Blood Pressure Intake & Output 04/28/18 04/29/18 04/29/18 18:59 06:59 18:59 Weight 109 kg Lab and Micro Results: Microbiology 04/25/18 16:15 Group B Streptococcus Screen ([facility]) - Final Genital - Genital Region Physical Exam: GENERAL: Well-nourished, well-developed patient. CARDIOVASCULAR: Regular rate and rhythm without murmurs, gallops, or rubs. RESPIRATORY: Breath sounds equal bilaterally. No accessory muscle use. ABDOMEN/GI: Abdomen soft, gravid, non-tender. GENITOURINARY: External Genitalia: deferred Cervix: - Dilatation: - Effacement: - Station: - Presentation: vtx Membranes: SROM 7/10 at 11AM Uterine Contractions: absent FHT's: Category: 1 Baseline: appropriate for gestational age Reactive: - Variability: moderate Decels: no decels EXTREMITIES: No cyanosis or edema, non-tender, without signs of DVT. Assessment and Plan - Diagnosis (1) premature rupture of membranes (PPROM) with unknown onset of labor Code(s): O42.919 - premature rupture of membranes, unspecified as to length of time between rupture and onset of labor, unspecified trimester Status: Acute Plan: 27 YO at 30/3 weeks gestation with late PNC started at 15 weeks and short cervix followed by CFW who presents after SROM at approximately 11 AM on with PPROM. There are no ctx, VB, or pelvic pain, but there is some mild fluid leakage. Cervix closed on speculum exam 04/25. Reassuring FHT with Cat 1 tracing, BL appropriate for GA, moderate, absent decels. Pt has been chronically hypotensive during this hospitalization but is asymptomatic, otherwise afebrile with other VS stable. 1. PPROM at 30/3 weeks -[place] and monitor q4h -Cat 1 tracing, BL appropriate for gestational age, moderate, no decels -PRN tylenol and zofran -OOB with ambulation; SCDs in bed -Amoxicillin 875mg BID x5 days (04/27 - 05/01) Previous therapy/workup: -Discontinued Mag sulfate IV after 24 hours -Discontinued Ampicillin 2g IV q6h after 48 hours (04/25-04/27) -Discontinued Azithromycin 1g after 1 dose (04/25) -Discontinued Betamethasone 12mg IM after 2 doses (04/25-04/26) -Amnisure positive -GC/chlamydia, GBS and UDS negative Pt DW Dr Hoskins - Plan 27 YO at 30/0 weeks gestation with late PNC started at 15 weeks and short cervix followed by CFW who presents after SROM at approximately 11 AM on with PPROM. There are no ctx or VB. Cervix was closed on speculum exam 04/25. Reassuring FHT with Cat 1 tracing. Bedrest on antepartum. Afebrile. 1. PPROM at 30/0 weeks -[place] and monitor 20 minutes q4hr -Transition to amoxicillin 875mg BID for 5 days with first dose this am. -PRN tylenol and zofran -OOB with assistance today, ambulating as tolerated -Hypotension- BP has been relatively stable since admission. Clinically stable. Check CBC this am, continue to monitor. -Pt received 24hours Mg -Ampicillin 2g IV q6h, complete. Transition to Po a/b today. -Azithromycin 1g once (04/25), given -Betamethasone 12mg IM q24h x2 doses, given -Amnisure positive -OB diagnostic US w/cervical length - labs showing GC/chlamydia and GBS negative; GBS negative -UDS negative Pt DW Dr Wahl and SDW Dr Askew
[2018-04-29] MEDS: Prenatal Vit/Ca/Iron/Folic Acid Tablet PO SCH (09:42)
[2018-04-29] MEDS: Ferrous Sulfate 325 MG Tablet PO SCH ×2 (09:42→21:18)
[2018-04-29] MEDS: Famotidine 20 MG Tablet PO SCH (20:19)
[2018-04-30] MEDS: Ferrous Sulfate 325 MG Tablet PO SCH ×2 (08:51→21:10)
[2018-04-30] MEDS: Prenatal Vit/Ca/Iron/Folic Acid Tablet PO SCH (08:51)
[2018-04-30] MEDS: Famotidine 20 MG Tablet PO SCH ×2 (08:51→21:10)
--- NOTE | 2018-04-30 10:35 | P.OBANTE ---
Subjective Interval History: No acute events overnight. She states she has had normal movement. Denies nausea, vomiting, fever, chills, abdominal pain, shortness of breath, changes in vision, headache, lightheadedness, dizziness, dysuria, hematuria, change in urine color/smell, change in bowel habits. Notes some clear discharge. No bloody discharge, abnormally colored or malodorous discharge. No other complaints today. Objective Vital Signs and I&O: Vital Signs 04/29/18 12:00 04/29/18 13:00 04/29/18 16:00 Temperature 99.3 F Pulse Rate 76 72 Respiratory Rate 18 Blood Pressure 100/78 103/54 L 04/29/18 17:00 04/29/18 18:30 04/29/18 19:47 Temperature 99.0 F Pulse Rate 69 77 Respiratory Rate 18 Blood Pressure 102/48 L 04/30/18 01:00 04/30/18 07:20 04/30/18 07:21 Temperature 98.2 F 98.2 F Pulse Rate 174 H 85 Respiratory Rate 16 16 Blood Pressure 101/49 L 100/59 L Physical Exam: GENERAL: Well-nourished, well-developed patient. CARDIOVASCULAR: Regular rate and rhythm without murmurs, gallops, or rubs. RESPIRATORY: Breath sounds equal bilaterally. No accessory muscle use. ABDOMEN/GI: Abdomen soft, non-tender. GENITOURINARY: Membranes: SROM Uterine Contractions: None FHT's: Category: 1 Baseline: 140 Reactive: Yes Variability: Moderate Decels: None EXTREMITIES: No cyanosis or edema, non-tender, without signs of DVT. Assessment and Plan - Diagnosis (1) premature rupture of membranes (PPROM) with unknown onset of labor Code(s): O42.919 - premature rupture of membranes, unspecified as to length of time between rupture and onset of labor, unspecified trimester Status: Acute Plan: 27 YO at 30/3 weeks gestation with late PNC started at 15 weeks and short cervix followed by CFW who presents after SROM at approximately 11 AM on with PPROM. There are no ctx, VB, or pelvic pain, but there is some mild fluid leakage. Cervix closed on speculum exam 04/25. Reassuring FHT with Cat 1 tracing, BL appropriate for GA, moderate, absent decels. Pt has been chronically hypotensive during this hospitalization but is asymptomatic, otherwise afebrile with other VS stable. 1. PPROM at 30/4 weeks -[place] and monitor q4h -Cat 1 tracing, BL appropriate for gestational age, moderate, no decels -PRN tylenol and zofran -OOB with ambulation; SCDs in bed -Amoxicillin 875mg BID x5 days (04/27 - 05/01) Previous therapy/workup: -Discontinued Mag sulfate IV after 24 hours -Discontinued Ampicillin 2g IV q6h after 48 hours (04/25-04/27) -Discontinued Azithromycin 1g after 1 dose (04/25) -Discontinued Betamethasone 12mg IM after 2 doses (04/25-04/26) -Amnisure positive -GC/chlamydia, GBS and UDS negative Pt DW Dr Lomax
[2018-04-30] MEDS: Docusate Sodium 100 MG Capsule PO SCH (19:59)
[2018-05-01] MEDS: Ferrous Sulfate 325 MG Tablet PO SCH ×2 (09:00→20:39)
[2018-05-01] MEDS: Docusate Sodium 100 MG Capsule PO SCH ×2 (09:00→20:39)
[2018-05-01] MEDS: Prenatal Vit/Ca/Iron/Folic Acid Tablet PO SCH (09:00)
[2018-05-01] MEDS: Famotidine 20 MG Tablet PO SCH ×2 (09:01→20:39)
--- NOTE | 2018-05-01 09:06 | P.OBANTE ---
Subjective Interval History: Ms. Sahu is a 27yo at 30/5 who is status post Mg, Ampicillin, and Azithromycin for PPROM on 04/25/18 She denies any further leakage of fluid, vaginal bleeding, or contractions. She does endorse concern that she has not had a bowel movement in 2 days. She denies chest pain, difficulty breathing, leg pain, dysuria, dizziness, nausea, or vomiting. Objective Vital Signs and I&O: Vital Signs 04/30/18 11:10 04/30/18 11:19 04/30/18 16:28 Temperature 98.6 F 97.6 F Pulse Rate 81 76 80 Respiratory Rate 18 18 Blood Pressure 102/54 L 114/45 L 04/30/18 16:29 04/30/18 17:19 04/30/18 19:49 Temperature Pulse Rate 75 69 75 Respiratory Rate 16 Blood Pressure 100/55 L 04/30/18 20:00 04/30/18 21:04 04/30/18 22:00 Temperature 98.4 F 97.9 F Pulse Rate 71 71 Respiratory Rate Blood Pressure 05/01/18 00:00 05/01/18 00:15 05/01/18 03:00 Temperature 97.9 F 98.3 F Pulse Rate 75 67 Respiratory Rate 14 14 16 Blood Pressure 90/53 L 97/58 L 05/01/18 03:09 05/01/18 03:39 05/01/18 08:08 Temperature Pulse Rate 69 69 84 Respiratory Rate 18 Blood Pressure 102/65 Physical Exam: GENERAL: Well-nourished, well-developed patient. CARDIOVASCULAR: Regular rate and rhythm without murmurs, gallops, or rubs. RESPIRATORY: Breath sounds equal bilaterally. No accessory muscle use. ABDOMEN/GI: Abdomen soft, non-tender. Bowel sounds present GENITOURINARY: External Genitalia: Deferred FHT's: Category: 1 Baseline: 140 Reactive: yes Variability: moderate Decels: none EXTREMITIES: No cyanosis or edema, non-tender, without signs of DVT. Assessment and Plan - Diagnosis (1) premature rupture of membranes (PPROM) with unknown onset of labor Code(s): O42.919 - premature rupture of membranes, unspecified as to length of time between rupture and onset of labor, unspecified trimester Status: Acute - Plan 27 YO at 30/0 weeks gestation with late PNC started at 15 weeks and short cervix followed by CFW who presents after PPROM at approximately 11 AM on . Cervix was closed on speculum exam 04/25. PPROM- reassuring FHT. Patient is s/p 24hours Mg, single dose Azithromycin 1g (), ampicillin 2gIV q6h x2d, and betamethasone 12mg [id number]. On day 4 of 5 of amoxicillin 875mg BID. PRN tylenol and zofran. [place] and monitor 20minutes q4hr. OOB with assistance for brief periods. SCDs if in bed for extended periods of time. Hypotension- BP has been relatively stable since admission. Clinically stable. No signs of active bleeding. Continue to monitor Constipation- patient counselled to stay well hydrated. She is passing gas, bowel sounds present. Patient on colace Pt DW Dr Wahl and SDW Dr Askew
--- NOTE | 2018-05-02 08:33 | P.OBANTE ---
Subjective Interval History: Ms. Sahu is a 27yo at 30/6 who is status post Amoxicillin Mg, Ampicillin, and Azithromycin for PPROM on 04/25/18. She reports minimal leakage of fluid. No vaginal bleeding, or contractions. She denies chest pain, difficulty breathing, leg pain, dysuria, dizziness, nausea, or vomiting. FHT yesterday were reassuring. Objective Vital Signs and I&O: Vital Signs 05/01/18 11:57 05/01/18 15:52 05/01/18 19:01 Temperature 98.2 F 98.1 F Pulse Rate 80 85 81 Respiratory Rate 18 18 6 L Blood Pressure 119/64 96/54 L 112/57 L 05/01/18 20:00 05/01/18 20:59 05/01/18 21:39 Temperature 97.9 F Pulse Rate 117 H 76 Respiratory Rate Blood Pressure 05/01/18 22:00 05/02/18 01:14 05/02/18 01:19 Temperature 98.4 F 98.6 F Pulse Rate 76 76 Respiratory Rate Blood Pressure 05/02/18 01:44 05/02/18 02:00 05/02/18 05:00 Temperature 98.4 F Pulse Rate 80 69 Respiratory Rate 14 Blood Pressure 91/51 L 05/02/18 05:44 05/02/18 07:34 Temperature 98.2 F Pulse Rate 80 72 Respiratory Rate 18 Blood Pressure 98/58 L Physical Exam: GENERAL: Well-nourished, well-developed patient. CARDIOVASCULAR: Regular rate and rhythm without murmurs, gallops, or rubs. RESPIRATORY: Breath sounds equal bilaterally. No accessory muscle use. ABDOMEN/GI: Abdomen soft, non-tender. GENITOURINARY: Deferred FHT's: Category: appropriate for gestational age Baseline: 140 Reactive: yes Variability: moderate Decels: none EXTREMITIES: No cyanosis or edema, non-tender, without signs of DVT. Assessment and Plan - Diagnosis (1) premature rupture of membranes (PPROM) with unknown onset of labor Code(s): O42.919 - premature rupture of membranes, unspecified as to length of time between rupture and onset of labor, unspecified trimester Status: Acute - Plan 27 YO at 30/6 weeks gestation with late PNC started at 15 weeks and short cervix followed by CFW who presents after PPROM at approximately 11 AM on . Cervix was closed on speculum exam 04/25. PPROM- reassuring FHT. Patient is s/p 24hours Mg, single dose Azithromycin 1g (), ampicillin 2gIV q6h x2d, and betamethasone 12mg [id number], and 5 days of amoxicillin 875mg BID. PRN tylenol and zofran. [place] and monitor 20minutes q4hr. OOB with assistance for brief periods. SCDs if in bed for extended periods of time. Hypotension- BP has been relatively stable since admission. Clinically stable. No signs of active bleeding. Continue to monitor Constipation- patient counselled to stay well hydrated. She is passing gas, bowel sounds present. Patient on colace Pt DW Dr Serrano and SDW Dr Askew
[2018-05-02] MEDS: Ferrous Sulfate 325 MG Tablet PO SCH ×2 (09:48→22:17)
[2018-05-02] MEDS: Prenatal Vit/Ca/Iron/Folic Acid Tablet PO SCH (09:48)
[2018-05-02] MEDS: Senna/Docusate Sodium 8.6/50 MG Tablet PO SCH ×2 (09:48→22:17)
[2018-05-02] MEDS: Famotidine 20 MG Tablet PO SCH ×2 (09:48→22:17)
[2018-05-02 14:52] LABS: Hematocrit 28.5 % (35.0-46.0); Hemoglobin 9.4 gm/dL (11.6-15.3); Mean Corpuscular HGB Conc 33.1 % (32.0-36.0); Mean Corpuscular Hemoglobin 28.9 pg (27.0-34.0); Mean Corpuscular Volume 87.4 fL (80.0-100.0); Mean Platelet Volume 10.3 fL (7.0-11.0); Platelet Count 243 th/mm3 (150-450); Red Blood Count 3.26 mil/mm3 (4.00-5.30); Red Cell Distribution Width 12.9 % (11.6-17.2); White Blood Count 13.3 th/mm3 (4.0-11.0)
[2018-05-03] MEDS: Famotidine 20 MG Tablet PO SCH ×2 (08:15→21:18)
[2018-05-03] MEDS: Ferrous Sulfate 325 MG Tablet PO SCH ×2 (08:15→21:18)
[2018-05-03] MEDS: Prenatal Vit/Ca/Iron/Folic Acid Tablet PO SCH (08:15)
[2018-05-03] MEDS: Senna/Docusate Sodium 8.6/50 MG Tablet PO SCH (08:15)
--- NOTE | 2018-05-03 10:11 | P.OBANTE ---
Subjective Interval History: Mr. Christopher had no acute events overnight. She has no vaginal bleeding, continued trace leakage of fluid, and no contractions. She has no pain, is ambulating, taking p.o. without nausea or vomiting, voiding and had one BM yesterday. She has requested that we make her Jorge Luis-Colace as needed versus scheduled today. She continues to be borderline hypotensive and asymptomatic. Denies chest pain, SOB, diarrhea, fever and chills, and DVT pain. Objective Vital Signs and I&O: Vital Signs 05/02/18 13:16 05/02/18 16:39 05/02/18 16:40 Temperature 98.6 F 98.4 F Pulse Rate 84 88 Respiratory Rate 18 18 Blood Pressure 115/73 100/58 L 05/02/18 20:09 05/02/18 20:10 05/02/18 21:29 Temperature 98.1 F Pulse Rate 80 73 72 Respiratory Rate 18 Blood Pressure 99/55 L 05/02/18 23:30 05/03/18 01:40 05/03/18 03:55 Temperature 98.4 F Pulse Rate 72 Respiratory Rate 18 16 16 Blood Pressure 106/51 L 05/03/18 05:56 05/03/18 08:13 05/03/18 08:18 Temperature 98.2 F Pulse Rate 83 Respiratory Rate 16 17 Blood Pressure 107/64 Lab and Micro Results: Laboratory Results - last 24 hr 05/02/18 05/02/18 14:00 14:00 WBC 13.3 H RBC 3.26 L Hgb 9.4 L Hct 28.5 L MCV 87.4 MCH 28.9 MCHC 33.1 RDW 12.9 Plt Count 243 MPV 10.3 Blood Type O Positive Antibody Screen Negative Physical Exam: GENERAL: Well-nourished, well-developed patient in [facility]. CARDIOVASCULAR: Regular rate and rhythm without murmurs, gallops, or rubs. RESPIRATORY: Breath sounds equal bilaterally. No accessory muscle use. ABDOMEN/GI: Abdomen soft, gravid, non-tender. Fundus: - GENITOURINARY: External Genitalia: deferred due to PPROM Cervix: Dilatation: - Effacement: - Station: - Presentation: - Membranes: PPROM 7/10 Uterine Contractions: absent FHT's: Category: 1 Baseline: 135 Reactive: yes Variability: moderate Decels: absent EXTREMITIES: No cyanosis or edema, non-tender, without signs of DVT. Assessment and Plan - Diagnosis (1) premature rupture of membranes (PPROM) with unknown onset of labor Code(s): O42.919 - premature rupture of membranes, unspecified as to length of time between rupture and onset of labor, unspecified trimester Status: Acute Plan: 27 YO at 31/0 weeks gestation with late PNC started at 15 weeks and short cervix followed by CFW who presents after SROM at approximately 11 AM on with PPROM. There are no ctx, VB, or pelvic pain, but there is continued mild fluid leakage. Cervix closed on speculum exam 04/25. Reassuring FHT with Cat 1 tracing, BL 135, reactive, moderate, absent decels. Pt borderline hypotensive during this hospitalization but is asymptomatic, otherwise afebrile with other VS stable. 1. PPROM at 31/0 weeks; watchful waiting -[place] and monitor q4h -Cat 1 tracing, BL 135, reactive, moderate, no decels -PRN tylenol, zofran, jorge luis-colace -OOB with ambulation; SCDs in bed -CBC daily to follow WBC -BPP w/OB MFM today Previous therapy/workup: -Discontinued Amoxicillin 875mg BID x5 days (04/27 - 05/01) -Discontinued Mag sulfate IV after 24 hours -Discontinued Ampicillin 2g IV q6h after 48 hours (04/25-04/27) -Discontinued Azithromycin 1g after 1 dose (04/25) -Discontinued Betamethasone 12mg IM after 2 doses (04/25-04/26) -Amnisure positive -GC/chlamydia, GBS and UDS negative Pt DW Dr Wahl and SW Dr Crandall
[2018-05-03] MEDS: Zolpidem Tartrate 5 MG Tablet PO PRN (21:18)
[2018-05-04 06:29] LABS: Hematocrit 28.2 % (35.0-46.0); Hemoglobin 9.5 gm/dL (11.6-15.3); Mean Corpuscular HGB Conc 33.9 % (32.0-36.0); Mean Corpuscular Hemoglobin 29.8 pg (27.0-34.0); Mean Corpuscular Volume 87.8 fL (80.0-100.0); Mean Platelet Volume 9.6 fL (7.0-11.0); Platelet Count 235 th/mm3 (150-450); Red Blood Count 3.21 mil/mm3 (4.00-5.30); Red Cell Distribution Width 12.9 % (11.6-17.2); White Blood Count 10.6 th/mm3 (4.0-11.0)
--- NOTE | 2018-05-04 08:29 | P.OBANTE ---
Subjective Interval History: Ms. Sahu had no acute events overnight. Patient has no pain, is ambulating, taking p.o., voiding and stooling. Continues to have small fluid leakage, however no vaginal bleeding and good contractions. BPP yesterday 6 out of 8 with only anomaly being low KELLIE. Patient afebrile and vital signs stable with continuing borderline hypotension which is baseline. Denies fever, chills, chest pain, SOB, N/V/D, and DVT pain. Objective Vital Signs and I&O: Vital Signs 05/03/18 12:23 05/03/18 13:00 05/03/18 18:00 Temperature 98.2 F Pulse Rate 99 H 89 Respiratory Rate 17 18 Blood Pressure 110/56 L 100/49 L 05/03/18 20:04 Temperature Pulse Rate 88 Respiratory Rate Blood Pressure Lab and Micro Results: Laboratory Results - last 24 hr 05/04/18 06:02 WBC 10.6 RBC 3.21 L Hgb 9.5 L Hct 28.2 L MCV 87.8 MCH 29.8 MCHC 33.9 RDW 12.9 Plt Count 235 MPV 9.6 Physical Exam: GENERAL: Well-nourished, well-developed patient in NAD. CARDIOVASCULAR: Regular rate and rhythm without murmurs, gallops, or rubs. RESPIRATORY: Breath sounds equal bilaterally. No accessory muscle use. ABDOMEN/GI: Abdomen soft, gravid, non-tender. Fundus: - GENITOURINARY: External Genitalia: deferred due to PPROM Cervix: Dilatation: - Effacement: - Station: - Presentation: - Membranes: PPROM 04/25 Uterine Contractions: absent FHT's: Conducted 05/03/18 at 2000 hours Category: 1 Baseline: 145 Reactive: yes Variability: moderate Decels: absent EXTREMITIES: No cyanosis or edema, non-tender, without signs of DVT. Assessment and Plan - Diagnosis (1) premature rupture of membranes (PPROM) with unknown onset of labor Code(s): O42.919 - premature rupture of membranes, unspecified as to length of time between rupture and onset of labor, unspecified trimester Status: Acute Plan: 27 YO at 31/1 weeks gestation with late PNC started at 15 weeks and short cervix followed by CFW who presents after SROM at approximately 11 AM on with PPROM. There are no ctx, VB, or pelvic pain, but there is continued mild fluid leakage. Cervix closed on speculum exam 04/25. Reassuring FHT with Cat 1 tracing, BL 135, reactive, moderate, absent decels. Pt borderline hypotensive during this hospitalization but is asymptomatic, otherwise afebrile with other VS stable. 1. PPROM at 31/0 weeks; watchful waiting -[place] and monitor q4h -Continues to have Cat 1 tracing, BL 145, reactive, moderate, no decels at 2000hrs 05/03/18 -PRN tylenol, zofran, jorge luis-colace -OOB with ambulation; SCDs in bed -CBC daily to follow WBC -BPP score 8 on 05/03/18 showing low KELLIE Previous therapy/workup: -Discontinued Amoxicillin 875mg BID x5 days (04/27 - 05/01) -Discontinued Mag sulfate IV after 24 hours -Discontinued Ampicillin 2g IV q6h after 48 hours (04/25-04/27) -Discontinued Azithromycin 1g after 1 dose (04/25) -Discontinued Betamethasone 12mg IM after 2 doses (04/25-04/26) -Amnisure positive -GC/chlamydia, GBS and UDS negative Pt DW Dr Wahl and SW Dr Crandall - Plan 27 YO at 30/6 weeks gestation with late PNC started at 15 weeks and short cervix followed by CFW who presents after PPROM at approximately 11 AM on . Cervix was closed on speculum exam 04/25. PPROM- reassuring FHT. Patient is s/p 24hours Mg, single dose Azithromycin 1g (), ampicillin 2gIV q6h x2d, and betamethasone 12mg [id number], and 5 days of amoxicillin 875mg BID. PRN tylenol and zofran. [place] and monitor 20minutes q4hr. OOB with assistance for brief periods. SCDs if in bed for extended periods of time. Hypotension- BP has been relatively stable since admission. Clinically stable. No signs of active bleeding. Continue to monitor Constipation- patient counselled to stay well hydrated. She is passing gas, bowel sounds present. Patient on colace Pt DW Dr Serrano and SDW Dr Askew
[2018-05-04] MEDS: Prenatal Vit/Ca/Iron/Folic Acid Tablet PO SCH (08:59)
[2018-05-04] MEDS: Famotidine 20 MG Tablet PO SCH ×2 (08:59→21:16)
[2018-05-04] MEDS: Ferrous Sulfate 325 MG Tablet PO SCH ×2 (09:00→21:16)
[2018-05-04] MEDS: Zolpidem Tartrate 5 MG Tablet PO PRN (22:31)
--- NOTE | 2018-05-05 08:47 | P.OBANTE ---
Subjective Interval History: Ms. Sahu is a 27yo at 16/11 who is status post Amoxicillin Mg, Ampicillin, and Azithromycin for PPROM on 04/25/18. She reports minimal leakage of fluid. No vaginal bleeding, or contractions. She denies chest pain, difficulty breathing, leg pain, dysuria, dizziness, nausea, or vomiting. FHT yesterday were reassuring. She requests that her NST be d/c overnight so that she can sleep. Objective Vital Signs and I&O: Vital Signs 05/04/18 09:05 05/04/18 09:06 05/04/18 09:49 Temperature 98.0 F Pulse Rate 90 72 Respiratory Rate 18 18 Blood Pressure 92/56 L 05/04/18 13:00 05/04/18 18:00 05/04/18 19:09 Temperature 98.2 F 97.7 F Pulse Rate 85 83 84 Respiratory Rate 17 18 Blood Pressure 109/65 104/56 L 110/50 L 05/04/18 19:33 05/04/18 19:34 05/04/18 23:38 Temperature 98.8 F 98.3 F Pulse Rate 84 Respiratory Rate 18 18 Blood Pressure 05/04/18 23:59 05/05/18 05:45 Temperature 98.2 F Pulse Rate 131 H 74 Respiratory Rate 18 Blood Pressure 81/48 L 97/55 L Physical Exam: GENERAL: Well-nourished, well-developed patient. CARDIOVASCULAR: Regular rate and rhythm without murmurs, gallops, or rubs. RESPIRATORY: Breath sounds equal bilaterally. No accessory muscle use. ABDOMEN/GI: Gravid abdomen soft, non-tender. Normoactive bowel sounds. EXTREMITIES: No cyanosis or edema, non-tender, without signs of DVT. Assessment and Plan - Diagnosis (1) premature rupture of membranes (PPROM) with unknown onset of labor Code(s): O42.919 - premature rupture of membranes, unspecified as to length of time between rupture and onset of labor, unspecified trimester Status: Acute - Plan 27 YO at 30/6 weeks gestation with late PNC started at 15 weeks and short cervix followed by CFW who presents after PPROM at approximately 11 AM on . Cervix was closed on speculum exam 04/25. PPROM at 31 weeks -[place] and monitor q4h -Continues to have Cat 1 tracing -PRN tylenol, zofran, jorge luis-colace -OOB with ambulation; SCDs in bed -CBC in am 05/06 to f/u WBC -Patient has remained afebrile -BPP score 6/8 on 05/03/18 showing low KELLIE Hypotension -Patient has remained hypotensive for her entire admission -Asymptomatic -Continue to monitor Previous therapy/workup: -Discontinued Amoxicillin 875mg BID x5 days (04/27 - 05/01) -Discontinued Mag sulfate IV after 24 hours -Discontinued Ampicillin 2g IV q6h after 48 hours (04/25-04/27) -Discontinued Azithromycin 1g after 1 dose (04/25) -Discontinued Betamethasone 12mg IM after 2 doses (04/25-04/26) -Amnisure positive -GC/chlamydia, GBS and UDS negative Pt DW Dr Wahl and SDW Dr Askew
[2018-05-05] MEDS: Ferrous Sulfate 325 MG Tablet PO SCH (09:46)
[2018-05-05] MEDS: Famotidine 20 MG Tablet PO SCH (09:46)
[2018-05-05] MEDS: Prenatal Vit/Ca/Iron/Folic Acid Tablet PO SCH (09:46)
[2018-05-06 06:23] LABS: Hematocrit 26.4 % (35.0-46.0); Hemoglobin 8.9 gm/dL (11.6-15.3); Mean Corpuscular HGB Conc 33.7 % (32.0-36.0); Mean Corpuscular Hemoglobin 29.5 pg (27.0-34.0); Mean Corpuscular Volume 87.4 fL (80.0-100.0); Mean Platelet Volume 9.7 fL (7.0-11.0); Platelet Count 231 th/mm3 (150-450); Red Blood Count 3.02 mil/mm3 (4.00-5.30); Red Cell Distribution Width 12.8 % (11.6-17.2); White Blood Count 12.2 th/mm3 (4.0-11.0)
--- NOTE | 2018-05-06 09:12 | P.OBANTE ---
Subjective Interval History: Ms. Sahu is a 27yo at 31/2 with PPROM on 04/25/2018, status post Amoxicillin, Mg, Ampicillin, and Azithromycin. No overnight events. Continued minimal leakage of fluid. No vaginal bleeding, or contractions. She denies chest pain, difficulty breathing, leg pain, dysuria , dizziness, nausea, or vomiting. FHT yesterday were reassuring for gestational age, d/c overnight to allow her to rest. Objective Vital Signs and I&O: Vital Signs 05/05/18 09:52 05/05/18 10:00 05/05/18 14:27 Temperature 98.2 F 98.9 F Pulse Rate 77 94 H Respiratory Rate 16 16 Blood Pressure 111/72 110/56 L 05/05/18 14:44 05/05/18 18:07 05/05/18 18:44 Temperature 98.1 F Pulse Rate 90 84 83 Respiratory Rate 16 Blood Pressure 112/61 05/05/18 19:41 05/06/18 00:26 05/06/18 07:54 Temperature 98.0 F 97.8 F 98.1 F Pulse Rate 81 86 84 Respiratory Rate 16 18 18 Blood Pressure 114/67 104/50 L 95/57 L Lab and Micro Results: Laboratory Results - last 24 hr 05/06/18 05:55 WBC 12.2 H RBC 3.02 L Hgb 8.9 L Hct 26.4 L MCV 87.4 MCH 29.5 MCHC 33.7 RDW 12.8 Plt Count 231 MPV 9.7 Physical Exam: GENERAL: Well-nourished, well-developed patient. CARDIOVASCULAR: Regular rate and rhythm without murmurs, gallops, or rubs. RESPIRATORY: Breath sounds equal bilaterally. No accessory muscle use. ABDOMEN/GI: Abdomen soft, non-tender. Normoactive bowel sounds. GENITOURINARY: FHT's: From last night: Baseline 150, moderate variability, no decels EXTREMITIES: No cyanosis or edema, non-tender, without signs of DVT. Assessment and Plan - Plan 27 YO at 31/2 weeks gestation with late PNC started at 15 weeks and short cervix followed by CFW who presents after PPROM at approximately 11 AM on . Cervix was closed on speculum exam 04/25. PPROM at 31/2 weeks -[place] and monitor q4h, except while patient sleeping overnight -Continues to have Cat 1 tracing -PRN tylenol, zofran, jorge luis-colace -OOB with ambulation; SCDs in bed -CBC in am 05/07 to f/u WBC -Patient has remained afebrile -BPP score 6/8 on 05/03/18 showing low KELLIE Hypotension -Patient has remained hypotensive for her entire admission -Asymptomatic -Continue to monitor Previous therapy/workup: -Discontinued Amoxicillin 875mg BID x5 days (04/27 - 05/01) -Discontinued Mag sulfate IV after 24 hours -Discontinued Ampicillin 2g IV q6h after 48 hours (04/25-04/27) -Discontinued Azithromycin 1g after 1 dose (04/25) -Discontinued Betamethasone 12mg IM after 2 doses (04/25-04/26) -Amnisure positive -GC/chlamydia, GBS and UDS negative Pt DW Dr Cali and SDW Dr Gibbs - Attending Attestation pt seen and examined. vtx by u/s. no s/sx of chorio.
[2018-05-06] MEDS: Prenatal Vit/Ca/Iron/Folic Acid Tablet PO SCH (10:06)
[2018-05-06] MEDS: Ferrous Sulfate 325 MG Tablet PO SCH (10:06)
[2018-05-06] MEDS: Famotidine 20 MG Tablet PO SCH (10:06)
--- NOTE | 2018-05-07 06:57 | P.OBANTE ---
Subjective Interval History: Ms. Sahu is a 27yo at 31/4 here with PPROM on 04/25/2018, status post Amoxicillin, Mg, Ampicillin, and Azithromycin. No overnight events. Continued minimal leakage of fluid. No vaginal bleeding, or contractions. She denies chest pain, difficulty breathing, leg pain, dysuria , dizziness, nausea, or vomiting. FHT yesterday were reassuring for gestational age baseline 140 reactive and moderte variability, d/c overnight to allow her to rest. Objective Vital Signs and I&O: Vital Signs 05/06/18 07:54 05/06/18 12:21 05/06/18 15:06 Temperature 98.1 F 98.7 F 98.6 F Pulse Rate 84 84 77 Respiratory Rate 18 16 16 Blood Pressure 95/57 L 110/67 110/62 05/06/18 18:32 05/06/18 18:33 05/06/18 21:49 Temperature 98.2 F Pulse Rate 80 75 Respiratory Rate 16 Blood Pressure 106/56 L 05/06/18 22:22 05/06/18 22:23 Temperature 98.0 F Pulse Rate 80 Respiratory Rate 18 Blood Pressure 103/53 L Physical Exam: GENERAL: Well-nourished, well-developed patient. CARDIOVASCULAR: Regular rate and rhythm without murmurs, gallops, or rubs. RESPIRATORY: Breath sounds equal bilaterally. No accessory muscle use. ABDOMEN/GI: Abdomen soft, non-tender. Gravid. GENITOURINARY: External Genitalia: Deferred FHT's: (Last night) Category: 1 Baseline: 140 Reactive: yes Variability: moderate Decels: none EXTREMITIES: No cyanosis or edema, non-tender, without signs of DVT. Assessment and Plan - Diagnosis (1) premature rupture of membranes (PPROM) with unknown onset of labor Code(s): O42.919 - premature rupture of membranes, unspecified as to length of time between rupture and onset of labor, unspecified trimester Status: Acute Plan: 27 YO at 31/ weeks gestation with late PNC started at 15 weeks and short cervix followed by CFW who presents after SROM at approximately 11 AM on with PPROM. There are no ctx, VB, or pelvic pain, but there is continued mild fluid leakage. Cervix closed on speculum exam 04/25. Reassuring FHT with Cat 1 tracing, BL 135, reactive, moderate, absent decels. Pt borderline hypotensive during this hospitalization but is asymptomatic, otherwise afebrile with other VS stable. 1. PPROM at 31/0 weeks; watchful waiting -[place] and monitor q4h -Continues to have Cat 1 tracing, BL 145, reactive, moderate, no decels at 2000hrs 05/03/18 -PRN tylenol, zofran, jorge luis-colace -OOB with ambulation; SCDs in bed -CBC daily to follow WBC -BPP score 6/8 on 05/03/18 showing low KELLIE Previous therapy/workup: -Discontinued Amoxicillin 875mg BID x5 days (04/27 - 05/01) -Discontinued Mag sulfate IV after 24 hours -Discontinued Ampicillin 2g IV q6h after 48 hours (04/25-04/27) -Discontinued Azithromycin 1g after 1 dose (04/25) -Discontinued Betamethasone 12mg IM after 2 doses (04/25-04/26) -Amnisure positive -GC/chlamydia, GBS and UDS negative Pt DW Dr Wahl and SW Dr Crandall - Plan 27 YO at 31/4 weeks gestation with late PNC started at 15 weeks and short cervix followed by CFW who presents after PPROM at approximately 11 AM on . Cervix was closed on speculum exam 04/25. PPROM at 31/4 weeks -[place] and monitor q4h, except while patient sleeping overnight -Continues to have Cat 1 tracing -PRN tylenol, zofran, jorge luis-colace -OOB with ambulation; SCDs in bed -WBC this am 13.4, increase from 12.2 on 05/05. Follow up CBC in am -Patient has remained afebrile -BPP score 6/8 on 05/03/18 showing low KELLIE Hypotension -Patient has remained hypotensive for her entire admission -Asymptomatic -Continue to monitor Previous therapy/workup: -Discontinued Amoxicillin 875mg BID x5 days (04/27 - 05/01) -Discontinued Mag sulfate IV after 24 hours -Discontinued Ampicillin 2g IV q6h after 48 hours (04/25-04/27) -Discontinued Azithromycin 1g after 1 dose (04/25) -Discontinued Betamethasone 12mg IM after 2 doses (04/25-04/26) -Amnisure positive -GC/chlamydia, GBS and UDS negative Pt DW Dr Cali and SDW Dr Gibbs
[2018-05-07 06:58] LABS: Hematocrit 27.5 % (35.0-46.0); Hemoglobin 9.3 gm/dL (11.6-15.3); Mean Corpuscular HGB Conc 33.8 % (32.0-36.0); Mean Corpuscular Volume 88.6 fL (80.0-100.0); Mean Platelet Volume 9.7 fL (7.0-11.0); Platelet Count 237 th/mm3 (150-450); Red Cell Distribution Width 13.2 % (11.6-17.2); White Blood Count 13.4 th/mm3 (4.0-11.0)
[2018-05-07] MEDS: Ferrous Sulfate 325 MG Tablet PO SCH ×2 (09:13→21:13)
[2018-05-07] MEDS: Famotidine 20 MG Tablet PO SCH ×3 (09:13→21:13)
[2018-05-07] MEDS: Prenatal Vit/Ca/Iron/Folic Acid Tablet PO SCH (09:13)
[2018-05-07] MEDS: Zolpidem Tartrate 5 MG Tablet PO PRN (21:12)
[2018-05-08 05:53] LABS: Hematocrit 26.9 % (35.0-46.0); Hemoglobin 9.2 gm/dL (11.6-15.3); Mean Corpuscular HGB Conc 34.3 % (32.0-36.0); Mean Corpuscular Volume 87.5 fL (80.0-100.0); Mean Platelet Volume 9.5 fL (7.0-11.0); Platelet Count 241 th/mm3 (150-450); Red Blood Count 3.07 mil/mm3 (4.00-5.30); White Blood Count 12.5 th/mm3 (4.0-11.0)
[2018-05-08] MEDS: Famotidine 20 MG Tablet PO SCH ×2 (09:10→21:09)
[2018-05-08] MEDS: Ferrous Sulfate 325 MG Tablet PO SCH ×2 (09:10→21:09)
[2018-05-08] MEDS: Prenatal Vit/Ca/Iron/Folic Acid Tablet PO SCH (09:10)
--- NOTE | 2018-05-08 09:35 | P.OBANTE ---
Subjective Interval History: No acute events overnight. Patient denies any vaginal bleeding, increased fluid leaking, decreased movement or contractions. Afebrile overnight. She states she is feeling well and has no complaints. Objective Vital Signs and I&O: Vital Signs 05/07/18 10:59 05/07/18 11:04 05/07/18 15:34 Temperature Pulse Rate 83 85 87 Respiratory Rate 17 Blood Pressure 05/07/18 15:39 05/07/18 15:47 05/07/18 19:54 Temperature 98.0 F Pulse Rate 85 85 81 Respiratory Rate Blood Pressure 113/52 L 95/53 L 05/07/18 20:00 05/08/18 07:54 05/08/18 07:55 Temperature 98.4 F 98.0 F Pulse Rate 87 Respiratory Rate 16 16 Blood Pressure 92/64 L 05/08/18 07:59 Temperature Pulse Rate 78 Respiratory Rate Blood Pressure Lab and Micro Results: Laboratory Results - last 24 hr 05/08/18 05:17 WBC 12.5 H RBC 3.07 L Hgb 9.2 L Hct 26.9 L MCV 87.5 MCH 30.0 MCHC 34.3 RDW 13.0 Plt Count 241 MPV 9.5 Physical Exam: GENERAL: Well-nourished, well-developed patient. CARDIOVASCULAR: Regular rate and rhythm without murmurs, gallops, or rubs. RESPIRATORY: Breath sounds equal bilaterally. No accessory muscle use. ABDOMEN/GI: Abdomen soft, non-tender. Fundus: 31 GENITOURINARY: External Genitalia: intact and normal in appearance Uterine Contractions: Absent FHT's: Category: 1 Baseline: 145 Reactive: y Variability: Moderate Decels: Absent EXTREMITIES: No cyanosis or edema, non-tender, without signs of DVT. Assessment and Plan - Diagnosis (1) premature rupture of membranes (PPROM) with unknown onset of labor Code(s): O42.919 - premature rupture of membranes, unspecified as to length of time between rupture and onset of labor, unspecified trimester Status: Acute Plan: 27 YO at 31/5 weeks gestation with late PNC started at 15 weeks and short cervix followed by CFW who presents after SROM at approximately 11 AM on with PPROM. There are no ctx, VB, or pelvic pain, but there is continued mild fluid leakage. Cervix closed on speculum exam 04/25. Reassuring FHT with Cat 1 tracing. Pt borderline hypotensive during this hospitalization but is asymptomatic, otherwise afebrile with other VS stable. 1. PPROM at 31/5 weeks; watchful waiting -[place] and monitor q4h -Continues to have Cat 1 tracing -PRN tylenol, zofran, jorge luis-colace -OOB with ambulation; SCDs in bed -CBC daily to follow WBC. Currently stable. -BPP score 6/8 on 05/03/18 showing low KELLIE Previous therapy/workup: -Discontinued Amoxicillin 875mg BID x5 days (04/27 - 05/01) -Discontinued Mag sulfate IV after 24 hours -Discontinued Ampicillin 2g IV q6h after 48 hours (04/25-04/27) -Discontinued Azithromycin 1g after 1 dose (04/25) -Discontinued Betamethasone 12mg IM after 2 doses (04/25-04/26) -Amnisure positive -GC/chlamydia, GBS and UDS negative - Plan 27 YO at 31/5 weeks gestation with late PNC started at 15 weeks and short cervix followed by CFW who presents after PPROM at approximately 11 AM on . Cervix was closed on speculum exam 04/25. Workup as above
[2018-05-08] MEDS: Zolpidem Tartrate 5 MG Tablet PO PRN (21:09)
[2018-05-09] MEDS: Famotidine 20 MG Tablet PO SCH ×3 (08:47→22:21)
[2018-05-09] MEDS: Ferrous Sulfate 325 MG Tablet PO SCH ×3 (08:47→20:24)
[2018-05-09] MEDS: Prenatal Vit/Ca/Iron/Folic Acid Tablet PO SCH (08:47)
--- NOTE | 2018-05-09 09:03 | P.OBANTE ---
Subjective Interval History: No acute events overnight. Patient denies any fever, chills, dysuria, vaginal bleeding, contractions or decreased movement. No change in the small amount leaking patient is experiencing. Objective Vital Signs and I&O: Vital Signs 05/08/18 12:24 05/08/18 19:54 05/08/18 20:04 Temperature 98.3 F Pulse Rate 79 81 81 Respiratory Rate 6 L Blood Pressure 107/63 05/08/18 20:19 05/09/18 07:34 05/09/18 07:49 Temperature 97.7 F Pulse Rate 81 91 H Respiratory Rate 16 Blood Pressure 97/60 L 05/09/18 07:54 Temperature Pulse Rate 78 Respiratory Rate Blood Pressure Physical Exam: GENERAL: Well-nourished, well-developed patient. CARDIOVASCULAR: Regular rate and rhythm without murmurs, gallops, or rubs. RESPIRATORY: Breath sounds equal bilaterally. No accessory muscle use. ABDOMEN/GI: Abdomen soft, non-tender. Fundus: 31 weeks GENITOURINARY: External Genitalia: intact and normal in appearance Uterine Contractions: Absent FHT's: Category: 1 Baseline: 155 Reactive: y Variability: mod Decels: absent EXTREMITIES: No cyanosis or edema, non-tender, without signs of DVT. Assessment and Plan - Diagnosis (1) premature rupture of membranes (PPROM) with unknown onset of labor Code(s): O42.919 - premature rupture of membranes, unspecified as to length of time between rupture and onset of labor, unspecified trimester Status: Acute Plan: 27 YO at 31/6 weeks gestation with late PNC started at 15 weeks and short cervix followed by CFW who presents after SROM at approximately 11 AM on with PPROM. There are no ctx, VB, or pelvic pain, but there is continued mild fluid leakage. Cervix closed on speculum exam 04/25. Reassuring FHT with Cat 1 tracing. Pt borderline hypotensive during this hospitalization but is asymptomatic, otherwise afebrile with other VS stable. 1. PPROM at 31/6 weeks; watchful waiting -[place] and monitor q4h -Continues to have Cat 1 tracing -PRN tylenol, zofran, jorge luis-colace -OOB with ambulation; SCDs in bed -CBC every other day. Currently stable. -BPP score 6/8 on 05/03/18 showing low KELLIE Previous therapy/workup: -Discontinued Amoxicillin 875mg BID x5 days (04/27 - 05/01) -Discontinued Mag sulfate IV after 24 hours -Discontinued Ampicillin 2g IV q6h after 48 hours (04/25-04/27) -Discontinued Azithromycin 1g after 1 dose (04/25) -Discontinued Betamethasone 12mg IM after 2 doses (04/25-04/26) -Amnisure positive -GC/chlamydia, GBS and UDS negative - Plan 27 YO at 31/5 weeks gestation with late PNC started at 15 weeks and short cervix followed by CFW who presents after PPROM at approximately 11 AM on . Cervix was closed on speculum exam 04/25. Workup as above
[2018-05-09] MEDS: Zolpidem Tartrate 5 MG Tablet PO PRN (22:19)
[2018-05-10 05:55] LABS: Hematocrit 26.3 % (35.0-46.0); Hemoglobin 8.9 gm/dL (11.6-15.3); Mean Corpuscular HGB Conc 33.8 % (32.0-36.0); Mean Corpuscular Hemoglobin 30.1 pg (27.0-34.0); Mean Corpuscular Volume 89.1 fL (80.0-100.0); Mean Platelet Volume 9.5 fL (7.0-11.0); Platelet Count 226 th/mm3 (150-450); Red Blood Count 2.95 mil/mm3 (4.00-5.30); Red Cell Distribution Width 13.6 % (11.6-17.2); White Blood Count 9.9 th/mm3 (4.0-11.0)
--- NOTE | 2018-05-10 08:33 | P.OBANTE ---
Subjective Interval History: No acute events overnight. Patient denies any fever, chills, dysuria, vaginal bleeding, contractions or decreased movement. No change in the small amount leaking patient is experiencing. Antepartum ROS: Denies: New complaints Objective Vital Signs and I&O: Vital Signs 05/09/18 20:21 05/09/18 20:39 Temperature 98.2 F Pulse Rate 82 79 Respiratory Rate 15 Blood Pressure 101/53 L Lab and Micro Results: Laboratory Results - last 24 hr 05/10/18 05:18 WBC 9.9 RBC 2.95 L Hgb 8.9 L Hct 26.3 L MCV 89.1 MCH 30.1 MCHC 33.8 RDW 13.6 Plt Count 226 MPV 9.5 Physical Exam: GENERAL: Well-nourished, well-developed patient. CARDIOVASCULAR: Regular rate and rhythm without murmurs, gallops, or rubs. RESPIRATORY: Breath sounds equal bilaterally. No accessory muscle use. ABDOMEN/GI: Abdomen soft, non-tender. GENITOURINARY: External Genitalia: Uterine Contractions: absent FHT's: Category: 1 Baseline: 150 Reactive:yes Variability: moderate Decels: none EXTREMITIES: No cyanosis or edema, non-tender, without signs of DVT. Assessment and Plan - Diagnosis (1) premature rupture of membranes (PPROM) with unknown onset of labor Code(s): O42.919 - premature rupture of membranes, unspecified as to length of time between rupture and onset of labor, unspecified trimester Status: Acute Plan: 27 YO at 31/7 weeks gestation with late PNC started at 15 weeks and short cervix followed by CFW who presents after SROM at approximately 11 AM on with PPROM. There are no ctx, VB, or pelvic pain, but there is continued mild fluid leakage. Cervix closed on speculum exam 04/25. Reassuring FHT with Cat 1 tracing. Pt borderline hypotensive during this hospitalization but is asymptomatic, otherwise afebrile with other VS stable. 1. PPROM at 31/7 weeks; watchful waiting -[place] and monitor q4h -Continues to have Cat 1 tracing -PRN tylenol, zofran, jorge luis-colace -OOB with ambulation; SCDs in bed -CBC every other day. Currently stable. -BPP score 6/8 on 05/03/18 showing low KELLIE Previous therapy/workup: -Discontinued Amoxicillin 875mg BID x5 days (04/27 - 05/01) -Discontinued Mag sulfate IV after 24 hours -Discontinued Ampicillin 2g IV q6h after 48 hours (04/25-04/27) -Discontinued Azithromycin 1g after 1 dose (04/25) -Discontinued Betamethasone 12mg IM after 2 doses (04/25-04/26) -Amnisure positive -GC/chlamydia, GBS and UDS negative - Plan 27 YO at 31/5 weeks gestation with late PNC started at 15 weeks and short cervix followed by CFW who presents after PPROM at approximately 11 AM on . Cervix was closed on speculum exam 04/25. Workup as above
[2018-05-10] MEDS: Famotidine 20 MG Tablet PO SCH ×2 (09:08→21:30)
[2018-05-10] MEDS: Ferrous Sulfate 325 MG Tablet PO SCH ×3 (09:08→21:30)
[2018-05-10] MEDS: Prenatal Vit/Ca/Iron/Folic Acid Tablet PO SCH (09:08)
[2018-05-10] MEDS: Zolpidem Tartrate 5 MG Tablet PO PRN (22:10)
--- NOTE | 2018-05-11 08:34 | P.OBANTE ---
Subjective Interval History: No acute events overnight. Patient denies any fever, chills, dysuria, vaginal bleeding, contractions or decreased movement. No change in the small amount leaking patient is experiencing. Objective Vital Signs and I&O: Vital Signs 05/10/18 08:35 05/10/18 08:59 05/10/18 12:06 Temperature 98.9 F 98.6 F Pulse Rate 83 79 120 H Respiratory Rate 16 16 Blood Pressure 99/62 L 91/63 L 05/10/18 12:49 05/10/18 16:14 05/10/18 16:39 Temperature 98.5 F Pulse Rate 82 83 84 Respiratory Rate 16 Blood Pressure 106/56 L 05/10/18 19:29 05/10/18 19:30 05/10/18 19:44 Temperature 97.9 F Pulse Rate 85 87 Respiratory Rate 18 Blood Pressure 103/59 L Physical Exam: GENERAL: Well-nourished, well-developed patient. CARDIOVASCULAR: Regular rate and rhythm without murmurs, gallops, or rubs. RESPIRATORY: Breath sounds equal bilaterally. No accessory muscle use. ABDOMEN/GI: Abdomen soft, non-tender. GENITOURINARY: External Genitalia: intact and normal in appearance Membranes: ruptured Uterine Contractions: none FHT's: Category: 1 Baseline: 145 Reactive: yes Variability: moderate Decels: none EXTREMITIES: No cyanosis or edema, non-tender, without signs of DVT. Assessment and Plan - Diagnosis (1) premature rupture of membranes (PPROM) with unknown onset of labor Code(s): O42.919 - premature rupture of membranes, unspecified as to length of time between rupture and onset of labor, unspecified trimester Status: Acute Plan: 27 YO at 32/1 weeks gestation with late PNC started at 15 weeks and short cervix followed by CFW who presents after SROM at approximately 11 AM on with PPROM. There are no ctx, VB, or pelvic pain, but there is continued mild fluid leakage. Cervix closed on speculum exam 04/25. Reassuring FHT with Cat 1 tracing. Pt borderline hypotensive during this hospitalization but is asymptomatic, otherwise afebrile with other VS stable. 1. PPROM at 32/1 weeks; watchful waiting -[place] and monitor q4h -Continues to have Cat 1 tracing -PRN tylenol, zofran, jorge luis-colace -OOB with ambulation; SCDs in bed -CBC every other day. Currently stable. -BPP score 6/8 on 05/03/18 showing low KELLIE Previous therapy/workup: -Discontinued Amoxicillin 875mg BID x5 days (04/27 - 05/01) -Discontinued Mag sulfate IV after 24 hours -Discontinued Ampicillin 2g IV q6h after 48 hours (04/25-04/27) -Discontinued Azithromycin 1g after 1 dose (04/25) -Discontinued Betamethasone 12mg IM after 2 doses (04/25-04/26) -Amnisure positive -GC/chlamydia, GBS and UDS negative - Plan 27 YO at 32/1 weeks gestation with late PNC started at 15 weeks and short cervix followed by CFW who presents after PPROM at approximately 11 AM on . Cervix was closed on speculum exam 04/25. Workup as above
[2018-05-11] MEDS: Famotidine 20 MG Tablet PO SCH ×2 (08:47→21:34)
[2018-05-11] MEDS: Ferrous Sulfate 325 MG Tablet PO SCH ×2 (08:47→21:35)
[2018-05-11] MEDS: Prenatal Vit/Ca/Iron/Folic Acid Tablet PO SCH (08:48)
[2018-05-11] MEDS: Zolpidem Tartrate 5 MG Tablet PO PRN (21:35)
[2018-05-12 06:04] LABS: Baso % (Auto) 0.5 % (0.0-2.0); Eos # (Auto) 0.3 th/mm3 (0.0-0.4); Eos % (Auto) 3.2 % (0.0-4.0); Hematocrit 27.2 % (35.0-46.0); Hemoglobin 9.3 gm/dL (11.6-15.3); Lymph # (Auto) 2.1 th/mm3 (1.0-4.8); Lymph % (Auto) 21.7 % (9.0-44.0); Mean Corpuscular HGB Conc 34.1 % (32.0-36.0); Mean Corpuscular Hemoglobin 30.1 pg (27.0-34.0); Mean Corpuscular Volume 88.4 fL (80.0-100.0); Mean Platelet Volume 9.6 fL (7.0-11.0); Mono # (Auto) 1.1 th/mm3 (0.0-0.9); Mono % (Auto) 11.5 % (0.0-8.0); Neut # (Auto) 6.1 th/mm3 (1.8-7.7); Neut % (Auto) 63.1 % (16.0-70.0); Platelet Count 227 th/mm3 (150-450); Red Blood Count 3.08 mil/mm3 (4.00-5.30); Red Cell Distribution Width 13.2 % (11.6-17.2); White Blood Count 9.7 th/mm3 (4.0-11.0)
--- NOTE | 2018-05-12 07:40 | P.OBANTE ---
Subjective Interval History: pt c/o itching on her back and under her rib cage since last evening. faint rash. denies f/c. mild cramping. Antepartum ROS: Reports: New complaints, Loss of fluid, movement normal Objective Vital Signs and I&O: Vital Signs 05/11/18 08:44 05/11/18 08:45 05/11/18 08:59 Temperature 98.0 F Pulse Rate 92 H 85 Respiratory Rate 16 Blood Pressure 108/60 05/11/18 09:09 05/11/18 11:39 05/11/18 15:29 Temperature 98.9 F Pulse Rate 85 82 95 H Respiratory Rate 17 Blood Pressure 109/58 L 05/11/18 18:07 05/11/18 18:49 05/11/18 21:39 Temperature 98.4 F 98.5 F Pulse Rate 81 82 85 Respiratory Rate 17 16 Blood Pressure 102/62 100/59 L 05/11/18 21:59 05/12/18 00:00 05/12/18 02:00 Temperature Pulse Rate 81 Respiratory Rate 16 16 Blood Pressure Lab and Micro Results: Laboratory Results - last 24 hr 05/12/18 05:14 WBC 9.7 RBC 3.08 L Hgb 9.3 L Hct 27.2 L MCV 88.4 MCH 30.1 MCHC 34.1 RDW 13.2 Plt Count 227 MPV 9.6 Neut % (Auto) 63.1 Lymph % (Auto) 21.7 [place] % (Auto) 11.5 H Eos % (Auto) 3.2 Baso % (Auto) 0.5 Neut # (Auto) 6.1 Lymph # (Auto) 2.1 [place] # (Auto) 1.1 H Eos # (Auto) 0.3 Baso # (Auto) 0.0 WBC Differential . Differential Comment Auto diff final Physical Exam: GENERAL: Well-nourished, well-developed patient. CARDIOVASCULAR: Regular rate and rhythm without murmurs, gallops, or rubs. RESPIRATORY: Breath sounds equal bilaterally. No accessory muscle use. ABDOMEN/GI: Abdomen soft, non-tender EXTREMITIES: No cyanosis or edema, non-tender, without signs of DVT. Assessment and Plan - Diagnosis (1) premature rupture of membranes (PPROM) with unknown onset of labor Code(s): O42.919 - premature rupture of membranes, unspecified as to length of time between rupture and onset of labor, unspecified trimester Status: Acute Plan: s/p mag/steroids/abx (2) Pruritic condition Code(s): L29.9 - Pruritus, unspecified Status: Acute Plan: trial hydrocortisone
[2018-05-12] MEDS: Ferrous Sulfate 325 MG Tablet PO SCH ×2 (09:36→21:46)
[2018-05-12] MEDS: Prenatal Vit/Ca/Iron/Folic Acid Tablet PO SCH (09:36)
[2018-05-12] MEDS: Famotidine 20 MG Tablet PO SCH ×2 (09:36→21:46)
[2018-05-12] MEDS: Zolpidem Tartrate 5 MG Tablet PO PRN (22:12)
--- NOTE | 2018-05-13 08:10 | P.OBANTE ---
Subjective Interval History: No acute events overnight. Patient continues to have small leakage of fluid but is not changed and quantity or appearance. Denies any vaginal bleeding, decreased movement or contractions. States she is feeling well and denies any fevers or chills, nausea vomiting. Objective Vital Signs and I&O: Vital Signs 05/12/18 08:40 05/12/18 09:00 05/12/18 11:29 Temperature 98.8 F Pulse Rate 96 H 98 H Respiratory Rate 18 18 Blood Pressure 116/60 105/64 05/12/18 11:35 05/12/18 15:26 05/12/18 19:56 Temperature 98.9 F 99.1 F 98.3 F Pulse Rate 90 83 Respiratory Rate 18 Blood Pressure 105/57 L 110/67 05/12/18 21:59 05/12/18 22:18 05/13/18 07:58 Temperature 98.4 F Pulse Rate 76 80 113 H Respiratory Rate 18 18 16 Blood Pressure 98/55 L 108/53 L 05/13/18 08:00 Temperature 98.2 F Pulse Rate Respiratory Rate Blood Pressure Physical Exam: GENERAL: Well-nourished, well-developed patient. CARDIOVASCULAR: Regular rate and rhythm without murmurs, gallops, or rubs. RESPIRATORY: Breath sounds equal bilaterally. No accessory muscle use. ABDOMEN/GI: Abdomen soft, non-tender. Fundus: 32 GENITOURINARY: External Genitalia: intact and normal in appearance Uterine Contractions: None FHT's: Category: 1 Baseline: 140 Variability: Moderate Decels: Rare variable deceleration EXTREMITIES: No cyanosis or edema, non-tender, without signs of DVT. Assessment and Plan - Diagnosis (1) premature rupture of membranes (PPROM) with unknown onset of labor Code(s): O42.919 - premature rupture of membranes, unspecified as to length of time between rupture and onset of labor, unspecified trimester Status: Acute Plan: 27 YO at 32/3 weeks gestation with late PNC started at 15 weeks and short cervix followed by CFW who presents after SROM at approximately 11 AM on with PPROM. There are no ctx, VB, or pelvic pain, but there is continued mild fluid leakage. Cervix closed on speculum exam 04/25. Reassuring FHT with Cat 1 tracing. Pt borderline hypotensive during this hospitalization but is asymptomatic, otherwise afebrile with other VS stable. 1. PPROM at 32/3 weeks; watchful waiting -[place] and monitor q4h -Continues to have Cat 1 tracing -PRN tylenol, zofran, jorge luis-colace -OOB with ambulation; SCDs in bed -CBC every other day. Currently stable. -BPP score 6/8 on 05/03/18 showing low KELLIE Previous therapy/workup: -Discontinued Amoxicillin 875mg BID x5 days (04/27 - 05/01) -Discontinued Mag sulfate IV after 24 hours -Discontinued Ampicillin 2g IV q6h after 48 hours (04/25-04/27) -Discontinued Azithromycin 1g after 1 dose (04/25) -Discontinued Betamethasone 12mg IM after 2 doses (04/25-04/26) -Amnisure positive -GC/chlamydia, GBS and UDS negative - Plan 27 YO at 32/3 weeks gestation with late PNC started at 15 weeks and short cervix followed by CFW who presents after PPROM at approximately 11 AM on . Cervix was closed on speculum exam 04/25. Workup as above
[2018-05-13] MEDS: Ferrous Sulfate 325 MG Tablet PO SCH ×2 (08:57→21:47)
[2018-05-13] MEDS: Prenatal Vit/Ca/Iron/Folic Acid Tablet PO SCH (08:58)
[2018-05-13] MEDS: Famotidine 20 MG Tablet PO SCH ×2 (08:58→21:47)
[2018-05-14 06:10] LABS: Baso % (Auto) 0.5 % (0.0-2.0); Eos # (Auto) 0.3 th/mm3 (0.0-0.4); Eos % (Auto) 4.4 % (0.0-4.0); Hematocrit 27.1 % (35.0-46.0); Hemoglobin 9.2 gm/dL (11.6-15.3); Lymph % (Auto) 26.1 % (9.0-44.0); Mean Corpuscular Volume 88.2 fL (80.0-100.0); Mean Platelet Volume 9.3 fL (7.0-11.0); Mono # (Auto) 0.9 th/mm3 (0.0-0.9); Mono % (Auto) 11.4 % (0.0-8.0); Neut # (Auto) 4.4 th/mm3 (1.8-7.7); Neut % (Auto) 57.6 % (16.0-70.0); Platelet Count 225 th/mm3 (150-450); Red Blood Count 3.07 mil/mm3 (4.00-5.30); Red Cell Distribution Width 13.4 % (11.6-17.2); White Blood Count 7.7 th/mm3 (4.0-11.0)
[2018-05-14] MEDS: Prenatal Vit/Ca/Iron/Folic Acid Tablet PO SCH (08:46)
[2018-05-14] MEDS: Ferrous Sulfate 325 MG Tablet PO SCH ×2 (08:46→22:13)
[2018-05-14] MEDS: Famotidine 20 MG Tablet PO SCH ×2 (08:46→22:14)
--- NOTE | 2018-05-14 09:15 | P.OBANTE ---
Subjective Interval History: Patient doing well today. Patient reports no contractions, small leakage of fluid unchanged from previous days, no blood. No dysuria. She is eating and drinking well. Denies N/V, chest pain, dyspnea. Antepartum ROS: Reports: movement normal Denies: New complaints, Loss of fluid, Vaginal bleeding, Contractions Objective Vital Signs and I&O: Vital Signs 05/13/18 12:53 05/13/18 19:00 05/13/18 19:16 Temperature 98.4 F 98.1 F Pulse Rate 87 78 Respiratory Rate 16 18 Blood Pressure 101/73 96/60 L 05/13/18 19:35 05/13/18 22:00 05/14/18 00:00 Temperature 98.4 F Pulse Rate 74 77 Respiratory Rate 18 18 Blood Pressure 93/57 L 05/14/18 08:19 05/14/18 08:20 05/14/18 08:21 Temperature 98.1 F Pulse Rate 78 Respiratory Rate 17 Blood Pressure 05/14/18 08:25 Temperature Pulse Rate 82 Respiratory Rate Blood Pressure 85/38 L Lab and Micro Results: Laboratory Results - last 24 hr 05/14/18 05:45 WBC 7.7 RBC 3.07 L Hgb 9.2 L Hct 27.1 L MCV 88.2 MCH 30.0 MCHC 34.0 RDW 13.4 Plt Count 225 MPV 9.3 Neut % (Auto) 57.6 Lymph % (Auto) 26.1 [place] % (Auto) 11.4 H Eos % (Auto) 4.4 H Baso % (Auto) 0.5 Neut # (Auto) 4.4 Lymph # (Auto) 2.0 [place] # (Auto) 0.9 Eos # (Auto) 0.3 Baso # (Auto) 0.0 WBC Differential . Differential Comment Auto diff final Physical Exam: GENERAL: Well-nourished, well-developed patient. CARDIOVASCULAR: Regular rate and rhythm without murmurs, gallops, or rubs. RESPIRATORY: Breath sounds equal bilaterally. No accessory muscle use. ABDOMEN/GI: Abdomen soft, non-tender. FHT's: Category: [-] 1 Baseline: [-] 140s Reactive: [-] Variability: [-] Decels: [-] EXTREMITIES: No cyanosis or edema, non-tender, without signs of DVT. Assessment and Plan - Diagnosis (1) premature rupture of membranes (PPROM) with unknown onset of labor Code(s): O42.919 - premature rupture of membranes, unspecified as to length of time between rupture and onset of labor, unspecified trimester Status: Acute Plan: 27 YO at 32/4 weeks gestation with late PNC started at 15 weeks and short cervix followed by CFW who presents after SROM at approximately 11 AM on with PPROM. There are no ctx, VB, or pelvic pain, but there is continued mild fluid leakage. Cervix closed on speculum exam 04/25. Reassuring FHT with Cat 1 tracing. Pt borderline hypotensive during this hospitalization but is asymptomatic, otherwise afebrile with other VS stable. 1. PPROM at 32/4 weeks; expectant mgmt -[place] and monitor q4h -Continues to have Cat 1 tracing -PRN tylenol, zofran, jorge luis-colace -OOB with ambulation; SCDs in bed -CBC every other day. Currently stable. -BPP score 6/8 on 05/03/18 showing low KELLIE -no s/sx of chorio Previous therapy/workup: -Discontinued Amoxicillin 875mg BID x5 days (04/27 - 05/01) -Discontinued Mag sulfate IV after 24 hours -Discontinued Ampicillin 2g IV q6h after 48 hours (04/25-04/27) -Discontinued Azithromycin 1g after 1 dose (04/25) -Discontinued Betamethasone 12mg IM after 2 doses (04/25-04/26) -Amnisure positive -GC/chlamydia, GBS and UDS negative (2) Pruritic condition Code(s): L29.9 - Pruritus, unspecified Status: Acute Plan: improving with care - Attending Attestation The exam, history, and the medical decision-making described in the above note were completed with the assistance of the resident physician. I reviewed and agree with the findings presented. I attest that I had a [id number] encounter with the patient on the same day, and personally performed and documented my assessment and findings in the medical record.
[2018-05-14] MEDS: Zolpidem Tartrate 5 MG Tablet PO PRN (22:14)
--- NOTE | 2018-05-15 08:17 | P.OBANTE ---
Subjective Interval History: No acute events overnight. Denies any increase in leakage of fluid, vaginal bleeding, contractions or decreased movement. Continues to be afebrile with no complaints. Objective Vital Signs and I&O: Vital Signs 05/14/18 08:19 05/14/18 08:20 05/14/18 08:21 Temperature 98.1 F Pulse Rate 78 Respiratory Rate 17 Blood Pressure 05/14/18 08:25 05/14/18 11:01 05/14/18 12:52 Temperature Pulse Rate 82 101 H Respiratory Rate 17 17 Blood Pressure 85/38 L 109/63 05/14/18 13:45 05/14/18 13:52 05/14/18 13:54 Temperature 98.4 F Pulse Rate 77 83 Respiratory Rate 17 Blood Pressure 100/54 L 05/14/18 18:16 05/14/18 19:00 05/14/18 22:00 Temperature 98.2 F Pulse Rate 82 Respiratory Rate 17 18 Blood Pressure 106/62 05/14/18 22:06 05/14/18 22:08 05/15/18 07:51 Temperature 98.4 F 98.1 F Pulse Rate 84 Respiratory Rate Blood Pressure 109/59 L 05/15/18 07:52 Temperature Pulse Rate 88 Respiratory Rate Blood Pressure 103/65 Physical Exam: GENERAL: Well-nourished, well-developed patient. CARDIOVASCULAR: Regular rate and rhythm without murmurs, gallops, or rubs. RESPIRATORY: Breath sounds equal bilaterally. No accessory muscle use. ABDOMEN/GI: Abdomen soft, non-tender. Fundus: 32 GENITOURINARY: External Genitalia: intact and normal in appearance Uterine Contractions: Absent FHT's: Category: 1 Baseline: 135 Reactive: y Variability: Moderate Decels: Absent EXTREMITIES: No cyanosis or edema, non-tender, without signs of DVT. Assessment and Plan - Diagnosis (1) premature rupture of membranes (PPROM) with unknown onset of labor Code(s): O42.919 - premature rupture of membranes, unspecified as to length of time between rupture and onset of labor, unspecified trimester Status: Acute Plan: 27 YO at 32/5 weeks gestation with late PNC started at 15 weeks and short cervix followed by CFW who presents after SROM at approximately 11 AM on with PPROM. There are no ctx, VB, or pelvic pain, but there is continued mild fluid leakage. Cervix closed on speculum exam 04/25. Reassuring FHT with Cat 1 tracing. Pt borderline hypotensive during this hospitalization but is asymptomatic, otherwise afebrile with other VS stable. 1. PPROM at 32/5 weeks; watchful waiting -[place] and monitor q4h -Continues to have Cat 1 tracing -PRN tylenol, zofran, jorge luis-colace -OOB with ambulation; SCDs in bed -CBC every other day. Currently stable. -BPP score 6/8 on 05/03/18 showing low KELLIE Previous therapy/workup: -Discontinued Amoxicillin 875mg BID x5 days (04/27 - 05/01) -Discontinued Mag sulfate IV after 24 hours -Discontinued Ampicillin 2g IV q6h after 48 hours (04/25-04/27) -Discontinued Azithromycin 1g after 1 dose (04/25) -Discontinued Betamethasone 12mg IM after 2 doses (04/25-04/26) -Amnisure positive -GC/chlamydia, GBS and UDS negative - Plan 27 YO at 32/5 weeks gestation with late PNC started at 15 weeks and short cervix followed by CFW who presents after PPROM at approximately 11 AM on . Cervix was closed on speculum exam 04/25. Workup as above
[2018-05-15] MEDS: Ferrous Sulfate 325 MG Tablet PO SCH ×2 (09:07→20:58)
[2018-05-15] MEDS: Prenatal Vit/Ca/Iron/Folic Acid Tablet PO SCH (09:07)
[2018-05-15] MEDS: Famotidine 20 MG Tablet PO SCH ×2 (09:07→20:58)
[2018-05-15] MEDS: Zolpidem Tartrate 5 MG Tablet PO PRN (22:53)
[2018-05-16 05:55] LABS: Hematocrit 26.9 % (35.0-46.0); Hemoglobin 8.9 gm/dL (11.6-15.3); Mean Corpuscular HGB Conc 33.1 % (32.0-36.0); Mean Corpuscular Volume 87.7 fL (80.0-100.0); Mean Platelet Volume 9.3 fL (7.0-11.0); Platelet Count 223 th/mm3 (150-450); Red Blood Count 3.07 mil/mm3 (4.00-5.30); Red Cell Distribution Width 13.5 % (11.6-17.2); White Blood Count 7.5 th/mm3 (4.0-11.0)
--- NOTE | 2018-05-16 08:35 | P.OBANTE ---
Subjective Interval History: No acute events overnight. Patient does report some increase in leakage of fluid , but no change in color/odor. No fever/chills, contractions, bleeding or decreased movement. Objective Vital Signs and I&O: Vital Signs 05/15/18 11:00 05/15/18 11:15 05/15/18 11:20 Temperature 98.1 F Pulse Rate 92 H 86 87 Respiratory Rate 18 Blood Pressure 104/61 05/15/18 11:40 05/15/18 14:55 05/15/18 15:00 Temperature Pulse Rate 89 163 H 90 Respiratory Rate Blood Pressure 05/15/18 15:30 05/15/18 20:15 05/15/18 20:19 Temperature 98.6 F 98.3 F Pulse Rate 85 Respiratory Rate 18 Blood Pressure 100/44 L 05/15/18 20:20 05/15/18 22:51 05/15/18 22:53 Temperature 98.1 F Pulse Rate 77 87 Respiratory Rate 18 Blood Pressure 98/54 L 106/60 Lab and Micro Results: Laboratory Results - last 24 hr 05/16/18 05:00 WBC 7.5 RBC 3.07 L Hgb 8.9 L Hct 26.9 L MCV 87.7 MCH 29.0 MCHC 33.1 RDW 13.5 Plt Count 223 MPV 9.3 Physical Exam: GENERAL: Well-nourished, well-developed patient. CARDIOVASCULAR: Regular rate and rhythm without murmurs, gallops, or rubs. RESPIRATORY: Breath sounds equal bilaterally. No accessory muscle use. ABDOMEN/GI: Abdomen soft, non-tender. Fundus: 32 GENITOURINARY: External Genitalia: intact and normal in appearance Uterine Contractions: absent FHT's: Category: 1 Baseline: 145 Reactive:y Variability: moderate Decels: absent EXTREMITIES: No cyanosis or edema, non-tender, without signs of DVT. Assessment and Plan - Diagnosis (1) premature rupture of membranes (PPROM) with unknown onset of labor Code(s): O42.919 - premature rupture of membranes, unspecified as to length of time between rupture and onset of labor, unspecified trimester Status: Acute Plan: 27 YO at 32/6 weeks gestation with late PNC started at 15 weeks and short cervix followed by CFW who presents after SROM at approximately 11 AM on with PPROM. There are no ctx, VB, or pelvic pain, but there is continued mild fluid leakage. Cervix closed on speculum exam 04/25. Reassuring FHT with Cat 1 tracing. Pt borderline hypotensive during this hospitalization but is asymptomatic, otherwise afebrile with other VS stable. 1. PPROM at 32/6 weeks; watchful waiting -[place] and monitor q4h -Continues to have Cat 1 tracing -PRN tylenol, zofran, jorge luis-colace -OOB with ambulation; SCDs in bed -CBC every other day. Currently stable. -BPP score 6/8 on 05/03/18 showing low KELLIE Previous therapy/workup: -Discontinued Amoxicillin 875mg BID x5 days (04/27 - 05/01) -Discontinued Mag sulfate IV after 24 hours -Discontinued Ampicillin 2g IV q6h after 48 hours (04/25-04/27) -Discontinued Azithromycin 1g after 1 dose (04/25) -Discontinued Betamethasone 12mg IM after 2 doses (04/25-04/26) -Amnisure positive -GC/chlamydia, GBS and UDS negative - Plan 27 YO at 32/6 weeks gestation with late PNC started at 15 weeks and short cervix followed by CFW who presents after PPROM at approximately 11 AM on . Cervix was closed on speculum exam 04/25. Workup as above
[2018-05-16] MEDS: Prenatal Vit/Ca/Iron/Folic Acid Tablet PO SCH (10:00)
[2018-05-16] MEDS: Famotidine 20 MG Tablet PO SCH ×2 (10:00→22:10)
[2018-05-16] MEDS: Ferrous Sulfate 325 MG Tablet PO SCH ×2 (11:09→22:10)
[2018-05-16] MEDS: Zolpidem Tartrate 5 MG Tablet PO PRN (22:10)
--- NOTE | 2018-05-17 08:25 | P.OBANTE ---
Subjective Interval History: No acute events overnight. Patient reports no increased leakage of fluid, and no change in color/odor. No fever/chills, contractions, bleeding or decreased movement. Objective Vital Signs and I&O: Vital Signs 05/16/18 09:58 05/16/18 10:00 05/16/18 12:00 Temperature 97.4 F L 98.1 F Pulse Rate 89 81 Respiratory Rate 18 Blood Pressure 109/60 106/66 05/16/18 12:56 05/16/18 16:52 05/16/18 17:00 Temperature 98.7 F Pulse Rate 102 H 79 Respiratory Rate 20 20 Blood Pressure 100/81 05/16/18 19:51 05/16/18 22:00 Temperature 97.9 F Pulse Rate 81 Respiratory Rate 16 18 Blood Pressure 104/53 L Physical Exam: GENERAL: Well-nourished, well-developed patient. CARDIOVASCULAR: Regular rate and rhythm without murmurs, gallops, or rubs. RESPIRATORY: Breath sounds equal bilaterally. No accessory muscle use. ABDOMEN/GI: Abdomen soft, non-tender. GENITOURINARY: External Genitalia: intact and normal in appearance Uterine Contractions: absent FHT's: Category: 1 Baseline: 150 Reactive: yes Variability: moderate Decels: none EXTREMITIES: No cyanosis or edema, non-tender, without signs of DVT. Assessment and Plan - Diagnosis (1) premature rupture of membranes (PPROM) with unknown onset of labor Code(s): O42.919 - premature rupture of membranes, unspecified as to length of time between rupture and onset of labor, unspecified trimester Status: Acute Plan: 27 YO at 33 weeks gestation with late PNC started at 15 weeks and short cervix followed by CFW who presents after SROM at approximately 11 AM on with PPROM. There are no ctx, VB, or pelvic pain, but there is continued mild fluid leakage. Cervix closed on speculum exam 04/25. Reassuring FHT with Cat 1 tracing. Pt borderline hypotensive during this hospitalization but is asymptomatic, otherwise afebrile with other VS stable. 1. PPROM at 33 weeks; watchful waiting -[place] and monitor q4h -Continues to have Cat 1 tracing -PRN tylenol, zofran, jorge luis-colace -OOB with ambulation; SCDs in bed -CBC every other day. Currently stable. -BPP score 6/8 on 05/03/18 showing low KELLIE Previous therapy/workup: -Discontinued Amoxicillin 875mg BID x5 days (04/27 - 05/01) -Discontinued Mag sulfate IV after 24 hours -Discontinued Ampicillin 2g IV q6h after 48 hours (04/25-04/27) -Discontinued Azithromycin 1g after 1 dose (04/25) -Discontinued Betamethasone 12mg IM after 2 doses (04/25-04/26) -Amnisure positive -GC/chlamydia, GBS and UDS negative
[2018-05-17] MEDS: Prenatal Vit/Ca/Iron/Folic Acid Tablet PO SCH (09:08)
[2018-05-17] MEDS: Ferrous Sulfate 325 MG Tablet PO SCH ×2 (09:08→22:53)
[2018-05-17] MEDS: Famotidine 20 MG Tablet PO SCH ×2 (09:08→22:54)
[2018-05-17] MEDS: Zolpidem Tartrate 5 MG Tablet PO PRN (22:55)
[2018-05-17] MEDS: Senna/Docusate Sodium 8.6/50 MG Tablet PO PRN (22:56)
--- NOTE | 2018-05-18 08:03 | P.OBANTE ---
Subjective Interval History: No acute events overnight. Patient reports no increased leakage of fluid, and no change in color/odor. No fever/chills, contractions, bleeding or decreased movement. Objective Vital Signs and I&O: Vital Signs 05/17/18 09:03 05/17/18 09:04 05/17/18 14:53 Temperature 98.2 F 98.7 F Pulse Rate 79 88 Respiratory Rate 17 16 Blood Pressure 97/61 L 106/58 L 05/17/18 15:00 05/17/18 19:22 05/17/18 19:45 Temperature 98.6 F Pulse Rate 78 79 72 Respiratory Rate 18 Blood Pressure 101/55 L 05/17/18 20:00 05/17/18 20:20 05/17/18 22:37 Temperature 97.7 F Pulse Rate 160 H 137 H 81 Respiratory Rate 18 Blood Pressure 109/67 05/18/18 06:51 05/18/18 06:52 Temperature 98.4 F Pulse Rate 86 Respiratory Rate 18 Blood Pressure 87/54 L Physical Exam: GENERAL: Well-nourished, well-developed patient. CARDIOVASCULAR: Regular rate and rhythm without murmurs, gallops, or rubs. RESPIRATORY: Breath sounds equal bilaterally. No accessory muscle use. ABDOMEN/GI: Abdomen soft, non-tender. GENITOURINARY: External Genitalia: intact and normal in appearance Membranes:ruptured Uterine Contractions: absent FHT's: Category: 1 Baseline: 145 Reactive: yes Variability:moderate Decels: none EXTREMITIES: No cyanosis or edema, non-tender, without signs of DVT. Assessment and Plan - Diagnosis (1) premature rupture of membranes (PPROM) with unknown onset of labor Code(s): O42.919 - premature rupture of membranes, unspecified as to length of time between rupture and onset of labor, unspecified trimester Status: Deleted Plan: 27 YO at 33 weeks and 1 daygestation with late PNC started at 15 weeks and short cervix followed by CFW who presents after SROM at approximately 11 AM on with PPROM. There are no ctx, VB, or pelvic pain, but there is continued mild fluid leakage. Cervix closed on speculum exam 04/25. Reassuring FHT with Cat 1 tracing. Pt borderline hypotensive during this hospitalization but is asymptomatic, otherwise afebrile with other VS stable. 1. PPROM at 33 weeks and 1 day; watchful waiting -[place] and monitor q4h -Continues to have Cat 1 tracing -PRN tylenol, zofran, jorge luis-colace -OOB with ambulation; SCDs in bed -CBC every other day. Currently stable. -BPP score 6/8 on 05/03/18 showing low KELLIE Previous therapy/workup: -Discontinued Amoxicillin 875mg BID x5 days (04/27 - 05/01) -Discontinued Mag sulfate IV after 24 hours -Discontinued Ampicillin 2g IV q6h after 48 hours (04/25-04/27) -Discontinued Azithromycin 1g after 1 dose (04/25) -Discontinued Betamethasone 12mg IM after 2 doses (04/25-04/26) -Amnisure positive -GC/chlamydia, GBS and UDS negative - Attending Attestation I personally saw and evaluated patient. Doing well, no signs or symptoms of chorioamnionitis, reassuring status, continue current management unless labor or other indication for delivery. SMS
[2018-05-18 08:22] LABS: Baso # (Auto) 0.1 th/mm3 (0.0-0.2); Baso % (Auto) 0.9 % (0.0-2.0); Eos # (Auto) 0.3 th/mm3 (0.0-0.4); Eos % (Auto) 4.2 % (0.0-4.0); Hemoglobin 10.4 gm/dL (11.6-15.3); Lymph # (Auto) 2.4 th/mm3 (1.0-4.8); Lymph % (Auto) 32.3 % (9.0-44.0); Mean Corpuscular HGB Conc 33.5 % (32.0-36.0); Mean Corpuscular Hemoglobin 29.4 pg (27.0-34.0); Mean Corpuscular Volume 87.5 fL (80.0-100.0); Mean Platelet Volume 9.1 fL (7.0-11.0); Mono # (Auto) 0.7 th/mm3 (0.0-0.9); Mono % (Auto) 9.9 % (0.0-8.0); Neut # (Auto) 3.9 th/mm3 (1.8-7.7); Neut % (Auto) 52.7 % (16.0-70.0); Platelet Count 262 th/mm3 (150-450); Red Blood Count 3.54 mil/mm3 (4.00-5.30); Red Cell Distribution Width 13.4 % (11.6-17.2); White Blood Count 7.3 th/mm3 (4.0-11.0)
[2018-05-18] MEDS: Famotidine 20 MG Tablet PO SCH ×2 (08:31→21:39)
[2018-05-18] MEDS: Prenatal Vit/Ca/Iron/Folic Acid Tablet PO SCH (08:31)
[2018-05-18] MEDS: Ferrous Sulfate 325 MG Tablet PO SCH ×2 (08:31→21:39)
[2018-05-18] MEDS: Zolpidem Tartrate 5 MG Tablet PO PRN (21:39)
--- NOTE | 2018-05-19 08:50 | P.OBANTE ---
Subjective Interval History: No acute events overnight. Patient continues to be afebrile and has no complaints of vaginal bleeding, contractions or decreased movement. She continues to have a clear leakage of fluid but no abnormal odor. Objective Vital Signs and I&O: Vital Signs 05/18/18 13:45 05/18/18 13:46 05/18/18 19:52 Temperature 97.7 F 98.2 F Pulse Rate 97 H Respiratory Rate 18 Blood Pressure 110/57 L 05/18/18 20:00 05/18/18 20:30 05/19/18 07:37 Temperature 98.7 F Pulse Rate 76 75 72 Respiratory Rate 16 Blood Pressure 96/50 L 95/47 L Physical Exam: GENERAL: Well-nourished, well-developed patient. CARDIOVASCULAR: Regular rate and rhythm without murmurs, gallops, or rubs. RESPIRATORY: Breath sounds equal bilaterally. No accessory muscle use. ABDOMEN/GI: Abdomen soft, non-tender. Fundus: 33 GENITOURINARY: External Genitalia: intact and normal in appearance Uterine Contractions: Absent FHT's: Category: 1 Baseline: 140 Reactive: y Variability: Moderate Decels: Absent EXTREMITIES: No cyanosis or edema, non-tender, without signs of DVT. Assessment and Plan - Diagnosis (1) premature rupture of membranes (PPROM) with unknown onset of labor Code(s): O42.919 - premature rupture of membranes, unspecified as to length of time between rupture and onset of labor, unspecified trimester Status: Acute Plan: 27 YO at 33 weeks and 2 day gestation with late PNC started at 15 weeks and short cervix followed by CFW who presents after SROM at approximately 11 AM on 04/25/18 with PPROM. There are no ctx, VB, or pelvic pain, but there is continued mild fluid leakage. Cervix closed on speculum exam 04/25. Reassuring FHT with Cat 1 tracing. Pt borderline hypotensive during this hospitalization but is asymptomatic, otherwise afebrile with other VS stable. 1. PPROM at 33 weeks and 2 day; watchful waiting -[place] and monitor q4h -Continues to have Cat 1 tracing -PRN tylenol, zofran, jorge luis-colace -OOB with ambulation; SCDs in bed -CBC every other day. Currently stable. -BPP score 6/8 on 05/03/18 showing low KELLIE Previous therapy/workup: -Discontinued Amoxicillin 875mg BID x5 days (04/27 - 05/01) -Discontinued Mag sulfate IV after 24 hours -Discontinued Ampicillin 2g IV q6h after 48 hours (04/25-04/27) -Discontinued Azithromycin 1g after 1 dose (04/25) -Discontinued Betamethasone 12mg IM after 2 doses (04/25-04/26) -Amnisure positive -GC/chlamydia, GBS and UDS negative - Plan 27 YO at 33/2 weeks gestation with late PNC started at 15 weeks and short cervix followed by CFW who presents after PPROM at approximately 11 AM on . Cervix was closed on speculum exam 04/25. Workup as above
[2018-05-19] MEDS: Famotidine 20 MG Tablet PO SCH ×2 (08:58→22:01)
[2018-05-19] MEDS: Prenatal Vit/Ca/Iron/Folic Acid Tablet PO SCH (08:58)
[2018-05-19] MEDS: Ferrous Sulfate 325 MG Tablet PO SCH ×2 (08:59→22:01)
[2018-05-20] MEDS: Zolpidem Tartrate 5 MG Tablet PO PRN (02:07)
[2018-05-20 07:34] LABS: Hematocrit 27.5 % (35.0-46.0); Hemoglobin 9.4 gm/dL (11.6-15.3); Mean Platelet Volume 9.3 fL (7.0-11.0); Platelet Count 235 th/mm3 (150-450); Red Blood Count 3.13 mil/mm3 (4.00-5.30); Red Cell Distribution Width 13.3 % (11.6-17.2); White Blood Count 5.8 th/mm3 (4.0-11.0)
[2018-05-20] MEDS: Ferrous Sulfate 325 MG Tablet PO SCH ×2 (08:49→20:56)
[2018-05-20] MEDS: Prenatal Vit/Ca/Iron/Folic Acid Tablet PO SCH (08:49)
[2018-05-20] MEDS: Famotidine 20 MG Tablet PO SCH ×2 (08:49→20:56)
--- NOTE | 2018-05-20 08:57 | P.OBANTE ---
Subjective Interval History: No acute events overnight. Patient continues to be afebrile and has no complaints of vaginal bleeding, contractions or decreased movement. She continues to have a clear leakage of fluid but no abnormal odor. Objective Vital Signs and I&O: Vital Signs 05/19/18 12:00 05/19/18 12:01 05/19/18 15:46 Temperature 98.0 F 98.0 F 98.0 F Pulse Rate 78 Respiratory Rate 16 16 16 Blood Pressure 98/55 L 05/19/18 15:59 05/19/18 16:09 05/19/18 19:41 Temperature 98.2 F Pulse Rate 73 85 Respiratory Rate 16 Blood Pressure 99/59 L 05/19/18 19:42 05/19/18 19:54 05/19/18 20:29 Temperature Pulse Rate 79 76 73 Respiratory Rate Blood Pressure 101/59 L 05/19/18 23:23 05/19/18 23:39 05/19/18 23:44 Temperature 98.1 F Pulse Rate 80 75 74 Respiratory Rate 16 Blood Pressure 122/70 05/19/18 23:49 Temperature Pulse Rate 74 Respiratory Rate Blood Pressure Lab and Micro Results: Laboratory Results - last 24 hr 05/20/18 05/20/18 07:00 07:00 WBC 5.8 RBC 3.13 L Hgb 9.4 L Hct 27.5 L MCV 88.0 MCH 30.0 MCHC 34.0 RDW 13.3 Plt Count 235 MPV 9.3 Blood Type O Positive Antibody Screen Negative Physical Exam: GENERAL: Well-nourished, well-developed patient. CARDIOVASCULAR: Regular rate and rhythm without murmurs, gallops, or rubs. RESPIRATORY: Breath sounds equal bilaterally. No accessory muscle use. ABDOMEN/GI: Abdomen soft, non-tender. Fundus: [-] GENITOURINARY: External Genitalia: intact and normal in appearance Cervix: [-] Dilatation: [-] Effacement: [-] Station: [-] Presentation: [-] Membranes: [-] Uterine Contractions: [-] FHT's: Category: [-] Baseline: [-] Reactive: [-] Variability: [-] Decels: [-] EXTREMITIES: No cyanosis or edema, non-tender, without signs of DVT. Assessment and Plan - Diagnosis (1) premature rupture of membranes (PPROM) with unknown onset of labor Code(s): O42.919 - premature rupture of membranes, unspecified as to length of time between rupture and onset of labor, unspecified trimester Status: Acute Plan: 27 YO at 33 weeks and 3 day gestation with late PNC started at 15 weeks and short cervix followed by CFW who presents after SROM at approximately 11 AM on 04/25/18 with PPROM. There are no ctx, VB, or pelvic pain, but there is continued mild fluid leakage. Cervix closed on speculum exam 04/25. Reassuring FHT with Cat 1 tracing. Pt borderline hypotensive during this hospitalization but is asymptomatic, otherwise afebrile with other VS stable. 1. PPROM at 33 weeks and 3 day; watchful waiting -[place] and monitor q4h -Continues to have Cat 1 tracing -PRN tylenol, zofran, jorge luis-colace -OOB with ambulation; SCDs in bed -CBC Tuesday before induction. Currently stable. -Repeat Type and cross Tuesday -BPP score 6/8 on 05/03/18 showing low KELLIE Previous therapy/workup: -Discontinued Amoxicillin 875mg BID x5 days (04/27 - 05/01) -Discontinued Mag sulfate IV after 24 hours -Discontinued Ampicillin 2g IV q6h after 48 hours (04/25-04/27) -Discontinued Azithromycin 1g after 1 dose (04/25) -Discontinued Betamethasone 12mg IM after 2 doses (04/25-04/26) -Amnisure positive -GC/chlamydia, GBS and UDS negative
[2018-05-21] MEDS ORDERED: Lidocaine PF 1% Inj 5 ML Vial ONE (05:19)
[2018-05-21] MEDS ORDERED: fentaNYL 2MCG-Bupiv 0.125% Epi 150 ML EPIDURAL ONE (05:19)
[2018-05-21] MEDS ORDERED: Oxytocin 30 Units/500ml Premix 30 UNITS/500 ML BAG ONE (05:20)
[2018-05-21] MEDS ORDERED: Naloxone Inj 0.4 MG/ML Vial IV.PUSH PRN (05:50)
[2018-05-21] MEDS ORDERED: Acetaminophen 325 MG Tablet PO PRN (05:50)
[2018-05-21] MEDS ORDERED: Bisacodyl 10 MG Supp RECTAL PRN (05:50)
[2018-05-21] MEDS ORDERED: Zolpidem Tartrate 5 MG Tablet PO PRN (05:50)
[2018-05-21] MEDS ORDERED: Benzocaine 20% Top Spray 60 ML Can TOPICAL PRN (05:50)
[2018-05-21] MEDS ORDERED: Ibuprofen 400 MG Tablet PO PRN (05:50)
[2018-05-21] MEDS ORDERED: Witch Hazel 50%/Glyderin 12.5% 40 Pad Jar RECTAL PRN (05:50)
--- NOTE | 2018-05-21 05:53 | P.OBDELI ---
Weeks Gestation: 33 Patient Started Active Labor: Yes Medical Induction of Labor: No Artificial Rupture of Membrane: No Anesthesia: None Episiotomy: none Vaginal Delivery: Normal, Spontaneous Presentation: Occiput anterior Nuchal Cord: None Delayed Cord Clamping (45 sec): Yes Placenta: Spontaneous delivery, Intact, 3 vessel cord Laceration: Episiotomy Estimated blood loss (mL): 100 Infant: Female Infant Delivery Date: 05/21/18 Delivery Time: 05:40 score (1 min): 9 score (5 min): 9 (Pt was on APU for PPROM. RN notified me of ctx and spotting. Within the hour, pt was complete.)
[2018-05-21] MEDS ORDERED: Oxytocin 30 Units/500ml Premix 30 UNITS/500 ML BAG IV.CONT SCH (06:00)
[2018-05-21] MEDS ORDERED: Methylergonovine Inj 0.2 MG/ML Ampul ONE (06:18)
[2018-05-21] MEDS ORDERED: Carboprost Tromethamine Inj 250 MCG/ML Ampul IM ONE (06:46)
[2018-05-21] MEDS ORDERED: Measles/Mumps/Rubella Vaccine Inj 0.5 ML Vial SQ ONE (16:00)
[2018-05-21] MEDS ORDERED: Diphtheria/Tetanus/Pertussis Vaccine Inj 0.5 ML Syringe IM ONE (16:00)
[2018-05-21] MEDS: Ferrous Sulfate 325 MG Tablet PO SCH (20:01)
[2018-05-21] MEDS: Senna/Docusate Sodium 8.6/50 MG Tablet PO PRN (20:01)
[2018-05-21] MEDS: Famotidine 20 MG Tablet PO SCH (20:01)
[2018-05-21] MEDS: Senna/Docusate Sodium 8.6/50 MG Tablet PO SCH (20:01)
[2018-05-22] MEDS: Ferrous Sulfate 325 MG Tablet PO SCH (09:00)
--- NOTE | 2018-05-22 09:07 | P.PNOB ---
Subjective Post day: 1 Interval history: Patient is a 27-year-old delivered at 33 weeks and 4 days. Patient is day 1 after . Patient's pain is well-controlled. Patient reports eating and drinking without any nausea or vomiting. Patient reports minimal bleeding. Patient has passed gas but no bowel movements. Patient is walking without lower extremity pain or shortness of breath. Patient reports desire for contraception Depo and breast-feeding. Objective Vital Signs/I&O: Vital Signs 05/21/18 09:50 05/21/18 20:00 05/22/18 07:00 Temperature 98.0 F 98.2 F Pulse Rate 76 75 79 Respiratory Rate 18 16 16 Blood Pressure 90/62 L 98/62 L 87/50 L Intake & Output 05/21/18 05/22/18 05/22/18 18:59 06:59 18:59 Intake Total 200 / 200 100 / 100 Balance 200 / 200 100 / 100 Intake: IV 200 / 200 100 / 100 Ofirmev Inj 1,000 mg In 100 ml 200 / 200 100 / 100 @ 400 mls/hr IV.SIG Q6H LEONARDO Rx# :[id number] Result Diagrams: 05/20/18 07:00 Objective Remarks: GENERAL: Well-nourished, well-developed patient. CARDIOVASCULAR: Regular rate and rhythm without murmurs, gallops, or rubs. RESPIRATORY: Breath sounds equal bilaterally. No accessory muscle use. ABDOMEN/GI: Abdomen soft, non-tender. Fundus: Firm, non-tender at umbilicus. GENITOURINARY: Light to moderate bleeding. EXTREMITIES: No cyanosis or edema, non-tender, without signs of DVT. Medications and IVs: Active Medications Acetaminophen (Tylenol) 650 mg PO Q4H PRN PRN Reason: PAIN SCALE 1 TO 2 Acetaminophen (Tylenol) 650 mg PO Q4H PRN PRN Reason: PAIN SCALE 1 TO 10 Al Hydroxide/Mg Hydroxide (Milk Of Magnesia Liq) 30 ml PO Q12H PRN PRN Reason: Mild Constipation Benzocaine (Americaine 20% Top [place]) 1 spray TOPICAL Q4H PRN PRN Reason: For Perineum Discomfort Bisacodyl (Dulcolax Supp) 10 mg RECTAL DAILY PRN PRN Reason: SEVERE CONSITIPATION Calcium Gluconate (Calcium Gluconate Inj) 1 gm IV.PUSH ONCE PRN PRN Reason: Magnesium toxicity Famotidine (Pepcid) 20 mg PO BID [facility] Last Admin: 05/21/18 20:01 Dose: 20 mg Ferrous Sulfate (Ferosul) 325 mg PO BID [facility] Last Admin: 05/21/18 20:01 Dose: 325 mg Hydrocortisone Acetate (Hydrocortisone 1% Cream) 1 applicatio TOPICAL TID [facility] Last Admin: 05/20/18 13:05 Dose: 1 applicatio Ibuprofen (Motrin) 800 mg PO Q8H PRN PRN Reason: For cramping Last Admin: 05/22/18 06:14 Dose: 800 mg Lactulose (Lactulose Liq) 30 ml PO DAILY PRN PRN Reason: SEVERE CONSITIPATION Naloxone HCl (Narcan Inj) 0.1 mg IV.PUSH Q2M PRN PRN Reason: for opiate reversal Ondansetron HCl (Zofran Odt) 4 mg PO Q6H PRN PRN Reason: NAUSEA OR VOMITING Ondansetron HCl (Zofran Odt) 4 mg SL Q6H PRN PRN Reason: NAUSEA OR VOMITING Last Admin: 05/21/18 04:46 Dose: 4 mg Vit/Calcium/Iron/Folic Ac (Stuartnatal Plus 3) 1 tab PO DAILY [facility] Last Admin: 05/20/18 08:49 Dose: 1 tab Senna/Docusate Sodium (Liza-Colace) 1 tab PO BID [facility] Last Admin: 05/21/18 20:01 Dose: 1 tab Senna/Docusate Sodium (Liza-Colace) 1 tab PO BID PRN PRN Reason: CONSTIPATION Last Admin: 05/17/18 22:56 Dose: 1 tab Sennosides (Senokot) 17.2 mg PO Q12H PRN PRN Reason: Moderate Constipation Sodium Chloride (Ns Flush) 2 ml IV.FLUSH BID [facility] Sodium Chloride (Ns Flush) 2 ml IV.FLUSH PRN PRN PRN Reason: FLUSH AFTER USING IV ACCESS Sodium Chloride (Ns Flush) 2 ml IV.FLUSH BID [facility] Last Admin: 05/20/18 02:08 Dose: Not Given Witch Apolonia/Glycerin (Tucks Pads) 1 applicatio RECTAL QID PRN PRN Reason: HEMORRHOIDS Zolpidem Tartrate (Ambien) 5 mg PO HS PRN PRN Reason: SLEEP Last Admin: 05/21/18 23:21 Dose: 5 mg Zolpidem Tartrate (Ambien) 5 mg PO HS PRN PRN Reason: SLEEP Last Admin: 05/20/18 02:07 Dose: 5 mg Assessment and Plan - Attending Attestation The exam, history, and the medical decision-making described in the above note were completed with the assistance of the resident physician. I reviewed and agree with the findings presented. I attest that I had a [id number] encounter with the patient on the same day, and personally performed and documented my assessment and findings in the medical record.
[2018-05-22] MEDS: Prenatal Vit/Ca/Iron/Folic Acid Tablet PO SCH (14:28)
[2018-05-22] MEDS: Acetaminophen 325 MG Tablet PO PRN (14:29)
[2018-05-22] MEDS: Senna/Docusate Sodium 8.6/50 MG Tablet PO SCH (14:29)
[2018-05-23] MEDS: Acetaminophen 325 MG Tablet PO PRN (06:08)
--- NOTE | 2018-05-23 07:12 | P.PNOB ---
Subjective Post day: 2 Interval history: Patient is a 27-year-old delivered at 33 weeks and 4 days. Patient is day 2 after . Patient's pain is well-controlled. Patient reports eating and drinking without any nausea or vomiting. Patient reports minimal bleeding. Patient has passed gas but no bowel movements. Patient is walking without lower extremity pain or shortness of breath. Patient reports desire for contraception Depo and breast-feeding. Objective Vital Signs/I&O: Vital Signs 05/22/18 20:40 Temperature 98.1 F Pulse Rate 71 Respiratory Rate 18 Blood Pressure 99/55 L Intake & Output 05/22/18 05/23/18 05/23/18 18:59 06:59 18:59 Intake Total 100 / 100 Balance 100 / 100 Intake: IV 100 / 100 Result Diagrams: 05/20/18 07:00 Objective Remarks: GENERAL: Well-nourished, well-developed patient. CARDIOVASCULAR: Regular rate and rhythm without murmurs, gallops, or rubs. RESPIRATORY: Breath sounds equal bilaterally. No accessory muscle use. ABDOMEN/GI: Abdomen soft, non-tender. Fundus: Firm, non-tender at umbilicus. GENITOURINARY: Light to moderate bleeding. EXTREMITIES: No cyanosis or edema, non-tender, without signs of DVT. Medications and IVs: Active Medications Acetaminophen (Tylenol) 650 mg PO Q4H PRN PRN Reason: PAIN SCALE 1 TO 2 Acetaminophen (Tylenol) 650 mg PO Q4H PRN PRN Reason: PAIN SCALE 1 TO 10 Last Admin: 05/23/18 06:08 Dose: 650 mg Al Hydroxide/Mg Hydroxide (Milk Of [place]) 30 ml PO Q12H PRN PRN Reason: Mild Constipation Benzocaine (Americaine 20% Top [place]) 1 spray TOPICAL Q4H PRN PRN Reason: For Perineum Discomfort Bisacodyl (Dulcolax Supp) 10 mg RECTAL DAILY PRN PRN Reason: SEVERE CONSITIPATION Calcium Gluconate (Calcium Gluconate Inj) 1 gm IV.PUSH ONCE PRN PRN Reason: Magnesium toxicity Famotidine (Pepcid) 20 mg PO BID [facility] Last Admin: 05/21/18 20:01 Dose: 20 mg Ferrous Sulfate (Ferosul) 325 mg PO BID [facility] Last Admin: 05/22/18 09:00 Dose: Not Given Hydrocortisone Acetate (Hydrocortisone 1% Cream) 1 applicatio TOPICAL TID [facility] Last Admin: 05/20/18 13:05 Dose: 1 applicatio Ibuprofen (Motrin) 800 mg PO Q8H PRN PRN Reason: For cramping Last Admin: 05/23/18 06:08 Dose: 800 mg Lactulose (Lactulose Liq) 30 ml PO DAILY PRN PRN Reason: SEVERE CONSITIPATION Naloxone HCl (Narcan Inj) 0.1 mg IV.PUSH Q2M PRN PRN Reason: for opiate reversal Ondansetron HCl (Zofran Odt) 4 mg PO Q6H PRN PRN Reason: NAUSEA OR VOMITING Ondansetron HCl (Zofran Odt) 4 mg SL Q6H PRN PRN Reason: NAUSEA OR VOMITING Last Admin: 05/21/18 04:46 Dose: 4 mg Vit/Calcium/Iron/Folic Ac (Stuartnatal Plus 3) 1 tab PO DAILY [facility] Last Admin: 05/22/18 14:28 Dose: 1 tab Senna/Docusate Sodium (Liza-Colace) 1 tab PO BID [facility] Last Admin: 05/22/18 14:29 Dose: 1 tab Senna/Docusate Sodium (Liza-Colace) 1 tab PO BID PRN PRN Reason: CONSTIPATION Last Admin: 05/17/18 22:56 Dose: 1 tab Sennosides (Senokot) 17.2 mg PO Q12H PRN PRN Reason: Moderate Constipation Sodium Chloride (Ns Flush) 2 ml IV.FLUSH BID [facility] Sodium Chloride (Ns Flush) 2 ml IV.FLUSH PRN PRN PRN Reason: FLUSH AFTER USING IV ACCESS Sodium Chloride (Ns Flush) 2 ml IV.FLUSH BID [facility] Last Admin: 05/20/18 02:08 Dose: Not Given Witch Apolonia/Glycerin (Tucks Pads) 1 applicatio RECTAL QID PRN PRN Reason: HEMORRHOIDS Zolpidem Tartrate (Ambien) 5 mg PO HS PRN PRN Reason: SLEEP Last Admin: 05/21/18 23:21 Dose: 5 mg Zolpidem Tartrate (Ambien) 5 mg PO HS PRN PRN Reason: SLEEP Last Admin: 05/20/18 02:07 Dose: 5 mg Assessment and Plan - Diagnosis (1) Vaginal delivery Code(s): O80 - Encounter for full-term uncomplicated delivery Status: Acute Plan: Patient is a 27-year-old delivered at 33 weeks and 4 days. Patient is day 2 after . Patient was counseled to do 6 weeks of pelvic rest. Patient was counseled to follow up in 6 weeks. Patient requested follow-up and contraception. --Continue routine care --Motrin and Tylenol when necessary for pain --Encourage OOB --Pelvic rest for 6 weeks will need follow-up appointment at that time. --Contraception: Depo --Discharge today
[2018-05-23] MEDS ORDERED: medroxyPROGESTERone Acetate Inj 150 MG/ML Syringe IM ONE (07:13)
[2018-05-23] MEDS: Ferrous Sulfate 325 MG Tablet PO SCH (09:44)
[2018-05-23] MEDS: Prenatal Vit/Ca/Iron/Folic Acid Tablet PO SCH (09:44)
[2018-05-23] MEDS: Famotidine 20 MG Tablet PO SCH (14:51)
[2018-05-23] MEDS: Senna/Docusate Sodium 8.6/50 MG Tablet PO SCH (14:52)
== END 2018-05-23 14:18 | disposition home or self-care (01) ==
LOC: H2E 12:10 → HOBED 12:10 → OBSVTOIN 13:55 → H2E 14:10 → H1EA 05-21 09:53
PROVIDERS: ADMIT Obstetrics & Gynecology; ATTEND Obstetrics & Gynecology